=== PATIENT | male | born 1945 | race Caucasian/White ===

== ENCOUNTER 2019-06-15 10:51 | Outpatient (CLI) | payer OTHER, SELFPAY ==
[2019-06-15 11:22] LABS: Basophils Absolute Auto 0.1 K/mm3 (0.0-0.1); Basophils Percent Auto 0.6 % (0.2-1.2); Eosinophils Absolute Auto 0.5 K/mm3 (0-0.3); Eosinophils Percent Auto 4.4 % (0-4.4); Hematocrit 41.8 % (42.0-52.0); Hemoglobin 14.3 g/dL (14.0-18.0); Immature Granulocyte Absolute 0.05 K/mm3 (0.00-0.031); Immature Granulocyte Percent A 0.5 % (0-0.5); Lymphocytes Absolute Auto 2.23 K/mm3 (0.9-3.2); Lymphocytes Percent Auto 20.6 % (18.3-44.2); Mean Corpuscular HGB Conc 34.2 g/dl (32-36); Mean Corpuscular Hemoglobin 31.2 pg (26-34); Mean Corpuscular Volume 91.3 fl (80-100); Monocytes Absolute Auto 0.9 K/mm3 (0.1-0.6); Monocytes Percent Auto 8.3 % (2.6-8.5); Neutrophils Absolute Auto 7.1 K/mm3 (1.3-6.7); Neutrophils Percent Auto 65.6 % (45.5-73.1); Platelet Count Result 161 k/mm3 (150-375); Red Blood Count 4.58 M/mm3 (4.6-6.20); Red Cell Distribution Width 13.4 % (11.5-14.5); White Blood Count 10.8 K/mm3 (4.5-10.0)
[2019-06-15 11:31] LABS: Hemoglobin A1C 5.6 % (<5.7)
[2019-06-15 11:35] LABS: Alanine Aminotransferase 20 U/L (4-50); Albumin Level 4.1 g/dL (3.5-5.1); Alkaline Phosphatase 66 U/L (38-126); Aspartate Amino Transferase 24 U/L (17-59); Bilirubin,Total 0.6 mg/dL (0.2-1.3); Blood Urea Nitrogen 12 mg/dL (9-20); Calcium 8.8 mg/dL (8.4-10.2); Carbon Dioxide 33 mmol/L (22-30); Chloride 92 mmol/L (98-107); Cholesterol 109 mg/dL (0-200); Estimated Glomerular Filt Rate > 60; Glucose 112 mg/dL (75-110); HDL Direct 28 mg/dL; Potassium 3.5 mmol/L (3.4-5.0); Sodium 134 mmol/L (137-145); Triglycerides 101 mg/dL (<150)
[2019-06-15 11:46] LABS: LDL Cholesterol Direct 71 mg/dL
[2019-06-15 12:04] LABS: Thyroid Stimulating Hormone 0.608 uIU/mL (0.465-4.680)
[2019-06-15 12:55] LABS: Creatinine Urine 18.5 mg/dL
[2019-06-15 13:06] LABS: Microalbumin Urine Random < 6.0 mg/L (0-16.7)
== END 2019-06-15 10:52 | disposition home or self-care (01) ==
LOC: ANHLAB 10:52
PROVIDERS: PCP Internal Medicine; Visit Provider Internal Medicine
DX: I10 Essential (primary) hypertension (principal); E11.9 Type 2 diabetes mellitus without complications; E78.5 Hyperlipidemia, unspecified
CPT/HCPCS: 36415; 80053; 80061; 82043; 83036; 84443; 85025

== ENCOUNTER 2019-06-16 13:04 | Outpatient (CLI) | payer OTHER, SELFPAY ==
--- NOTE | 2019-06-16 13:18 | ECHO_ITS ---
Patient Info Name: Partha Robbins Age: 73 years : 1945 Gender: Male Ht: 73 in Wt: 297 lbs BSA: 2.69 m2 HR: 78 bpm BP: 169 / 86 mmHg Heart Rhythm: Sinus Rhythm Technical Quality: Good Exam Date: 06/16/2019 1:24 PM Exam Location: [facility] Patient Status: Outpatient Admit Date: 06/16/2019 Staff Ordering Physician: Ramon Dela Cruz MD Flat Lock Machine Operator: Kp Brito RDCS Attending Provider: Ramon Dela Cruz MD Exam Type: CA echo doppler color flow Study Info Indications R60.9 - Edema, unspecified Complete two-dimensional, color flow and Doppler transthoracic echocardiogram is performed. History/Risk Factors Edema, HTN. Summary 1. Left ventricular chamber dimension is normal. 2. Left ventricular systolic function is normal, estimated at 50-55%. 3. The left ventricular diastolic function is abnormal. 4. E/e' 10 is mildly elevated. 5. Left atrial chamber dimension is moderately enlarged. 6. Right atrial chamber dimension is mildly enlarged. 7. There is mild mitral valve regurgitation. 8. There is trace tricuspid valve regurgitation. 9. No pulmonary hypertension, estimated pulmonary arterial systolic pressure is 35 mmHg. Left Ventricle E/e' 10 is mildly elevated. Left ventricular chamber dimension is normal. Left ventricular systolic function is normal, estimated at 50-55%. The left ventricular diastolic function is abnormal. Right Ventricle Right ventricular chamber dimension is normal. Right ventricular systolic function is normal. Left Atria Left atrial chamber dimension is moderately enlarged. Right Atria Right atrial chamber dimension is mildly enlarged. Aortic Valve The aortic valve is trileaflet. There is no aortic valve stenosis. There is no aortic valve regurgitation. Pulmonic Valve There is no pulmonic regurgitation. Mitral Valve There is no mitral valve stenosis. There is mild mitral valve regurgitation. Tricuspid Valve There is trace tricuspid valve regurgitation. No pulmonary hypertension, estimated pulmonary arterial systolic pressure is 35 mmHg. Pericardium/Pleural There is no pericardial effusion. Inferior Vena Cava Normal inferior vena cava with >50% collapse upon inspiration consistent with normal right atrial pressure, 5 mmHg. Aorta The aortic root size at the sinus of Valsalva is normal. Left Ventricular Outflow Tract Name Value Normal LVOT 2D LVOT Diameter 2.0 cm LVOT Doppler LVOT Peak Gradient 7 mmHg LVOT Mean Gradient 4 mmHg LVOT VTI 27 cm LVOT VTI/AV VTI Ratio 0.8 LVOT Stroke Volume 80 ml LVOT CO 5.6 l/min LVOT CI 2.1 l/min/m2 Mitral Valve Name Value Normal MV Doppler
== END 2019-06-16 13:05 | disposition home or self-care (01) ==
LOC: ANHCARD 13:07
PROVIDERS: PCP Internal Medicine; Visit Provider Internal Medicine
DX: R60.9 Edema, unspecified (principal); I10 Essential (primary) hypertension; R93.1 Abnormal findings on diagnostic imaging of heart and coronary circulation
CPT/HCPCS: 93306

== ENCOUNTER 2019-06-20 13:28 | Outpatient (CLI) | payer OTHER, SELFPAY ==
--- NOTE | ~2019-06-20 | CT_ITS ---
EXAMINATION: CT lung screening EXAM DATE: 06/20/2019 14:07 INDICATION: Personal history of nicotine dependence. TECHNIQUE: Spiral low dose CT of the chest without contrast. Axial, coronal and sagittal images were reviewed. The dose-length product (DLP) for this examination was 346.40 mGy-cm. The exposure was t ailored according to patient size (auto mA exposure control), and iterative reconstruction (ASIR) was used as additional dose reduction technique. There is no prior study for comparison. FINDINGS: There is mild emphysema. Tracheobronchial tree is patent. There is no mediastinal, caprice r or axillary lymphadenopathy. Small There is no pneumothorax. Heart normal in size. There is mild coronary arterial calcification, arterial sclerosis. Upper abdomen is unremarkable. Small bone island within T4. There are old rib fractures. IMPRESSION: Lung-RADS category 1, negative (<1%chance of malignancy); recommend continued LDCT screen ing in 1 year. Reviewed, dictated and finalized at location A. CTOR OF FINANCIAL REPORTING IMPRESSION: Lung-RADS category 1, negative (<1%chance of malignancy); recommend continued LDCT screening in 1 year.
== END 2019-06-20 13:29 | disposition home or self-care (01) ==
LOC: ANHIMG 13:29
PROVIDERS: PCP Internal Medicine; Visit Provider Internal Medicine
DX: Z09 Encounter for follow-up examination after completed treatment for conditions other than malignant neoplasm (principal); Z12.2 Encounter for screening for malignant neoplasm of respiratory organs; Z87.891 Personal history of nicotine dependence
CPT/HCPCS: G0297

== ENCOUNTER 2019-10-11 14:20 | Outpatient (CLI) | payer OTHER, SELFPAY ==
[2019-10-11 14:54] LABS: Add Urine Microscopic? YES; Appearance Urine Clear (Clear); Bacteria Urine Trace /hpf; Bilirubin Urine Negative (Negative); Blood Urine 3+ (Negative); Color Urine Yellow (Yellow); Glucose Urine UA Negative (Negative); Ketones Urine Negative (Negative); Leukocyte Esterase Ur Trace LEU/UL (Negative); Mucus Urine Rare /lpf; Nitrate Urine Negative (Negative); Protein Urine 1+ mg/dL (Negative); RBC Urine >75 /hpf (0-2); Specific Grav Ur 1.016 (1.001-1.035); Squamous Epithelial Cell Urine Rare /hpf (Few)
== END 2019-10-11 14:21 | disposition home or self-care (01) ==
PROVIDERS: PCP Internal Medicine; Visit Provider Internal Medicine
DX: R31.9 Hematuria, unspecified (principal)
CPT/HCPCS: 81001; 87086

== ENCOUNTER 2019-10-12 13:03 | Outpatient (CLI) | payer OTHER, SELFPAY ==
[2019-10-12 13:43] LABS: Alanine Aminotransferase 16 U/L (4-50); Albumin Level 4.1 g/dL (3.5-5.1); Alkaline Phosphatase 71 U/L (38-126); Aspartate Amino Transferase 20 U/L (17-59); Bilirubin,Total 0.5 mg/dL (0.2-1.3); Blood Urea Nitrogen 7 mg/dL (9-20); Carbon Dioxide 34 mmol/L (22-30); Chloride 97 mmol/L (98-107); Estimated Glomerular Filt Rate > 60; Glucose 96 mg/dL (75-110); Potassium 3.4 mmol/L (3.4-5.0); Sodium 135 mmol/L (137-145)
== END 2019-10-12 13:04 | disposition home or self-care (01) ==
LOC: ANHLAB 13:05
PROVIDERS: PCP Internal Medicine; Visit Provider Internal Medicine
DX: I10 Essential (primary) hypertension (principal); R82.2 Biliuria
CPT/HCPCS: 36415; 80053

== ENCOUNTER 2019-10-21 12:27 | Outpatient (CLI) | payer OTHER, SELFPAY ==
--- NOTE | ~2019-10-21 | CT_ITS ---
EXAMINATION: CT abdomen pelvis wo con EXAM DATE: 10/21/2019 13:07 INDICATION: Hematuria. TECHNIQUE: Spiral CT of the abdomen and pelvis was performed without contrast. Axial, coronal and sag ittal images were reviewed. The dose-length product (DLP) for this examination was 1432.45 mGy-cm. The exposure was tailored according to patient size (auto mA exposure control), and iterative reconst ruction (ASIR) was used as additional dose reduction technique. Comparison is made to prior examinati on from 07/02/2012. FINDINGS: There is an exophytic left renal cyst measuring 7.3 cm. Mild nonspecific bilateral perineph edgar fat stranding. There is no nephrolithiasis or hydronephrosis. The prostate is unremarkable. Th e bladder is unremarkable. The liver, spleen, adrenal glands and pancreas are unremarkable. Gallbla dder is unremarkable. No biliary obstruction. There is no retroperitoneal or pelvic lymphadenopathy . There is moderate scattered arteriosclerotic disease. The appendix is normal. The stomach and small bowel are unremarkable. There is expected amount of c olonic stool. There is mild scattered colonic diverticulosis. There is no adjacent inflammatory orlando ge to suggest diverticulitis. No free intraperitoneal gas. The heart is normal in size. There are no pericardial or pleural effusions. The lung bases are unremarkable. Moderate to severe lumbar di sc disease. There are no osteoblastic or osteolytic lesions identified. There are old left rib fractu res. Small umbilical fat-containing hernia. IMPRESSION: 1. No nephrolithiasis, hydronephrosis or acute intra-abdominal findings. 2. Mild colonic diverticulosis. Reviewed, dictated and finalized at location A.
== END 2019-10-21 12:28 | disposition home or self-care (01) ==
PROVIDERS: PCP Internal Medicine; Visit Provider Internal Medicine
DX: R31.9 Hematuria, unspecified (principal); K57.90 Diverticulosis of intestine, part unspecified, without perforation or abscess without bleeding
CPT/HCPCS: 74176

== ENCOUNTER 2019-12-14 11:53 | Outpatient (CLI) | payer OTHER, SELFPAY ==
[2019-12-14 12:22] LABS: Hemoglobin A1C 5.3 % (<5.7)
[2019-12-14 12:34] LABS: Alanine Aminotransferase 19 U/L (4-50); Alkaline Phosphatase 58 U/L (38-126); Anion Gap 10.5 mmol/L (7-16); Aspartate Amino Transferase 26 U/L (17-59); Bilirubin,Total 0.4 mg/dL (0.2-1.3); Blood Urea Nitrogen 12 mg/dL (9-20); Carbon Dioxide 32 mmol/L (22-30); Chloride 95 mmol/L (98-107); Estimated Glomerular Filt Rate > 60; Glucose 68 mg/dL (75-110); Potassium 3.5 mmol/L (3.4-5.0); Sodium 134 mmol/L (137-145)
[2019-12-14 13:30] LABS: Creatinine Urine 98.5 mg/dL
[2019-12-14 13:34] LABS: MALB Creatinine Ratio 6.7 mg/g (0-30); Microalbumin Urine Random 6.6 mg/L (0-16.7)
== END 2019-12-14 11:54 | disposition home or self-care (01) ==
PROVIDERS: PCP Internal Medicine; Visit Provider Internal Medicine
DX: E11.9 Type 2 diabetes mellitus without complications (principal); E78.5 Hyperlipidemia, unspecified
CPT/HCPCS: 36415; 80053; 82043; 83036

== ENCOUNTER 2020-01-31 16:49 | Outpatient (CLI) | payer OTHER, SELFPAY ==
--- NOTE | ~2020-01-31 | MR_ITS ---
EXAMINATION: MR lumbar spine wo con DATE: 01/31/2020 17:49 INDICATION: Low back pain. TECHNIQUE: Magnetic resonance imaging (MRI) of the lumbar spine was performed without intravenous con trast. Sequences included sagittal T2-weighted FSE, sagittal STIR FSE, sagittal T1-weighted FSE, and axial T2-weighted FSE. COMPARISON: None FINDINGS: There is 7 degrees dextrocurvature of thoracolumbar spine. There is 3 mm anterolisthesis of L3 on L4. There are Schmorl's nodes at most levels. There is mildly decreased disc height at L1-L2, moderately decreased disc height at L2-L3 at L3-L4, and severely decreased disc height at L4-L5 and L 5-S1. The distal spinal cord signal intensity is normal. The conus medullaris is at T12-L1. The follo wing disc levels are specifically discussed: L1-L2: The disc is bulging. There is mild bilateral facet joint osteoarthritis. There is mild bilater al neural foraminal stenosis. There is mild central canal stenosis. L2-L3: The disc is bulging and has an annular fissure. There is severe right and moderate left facet joint osteoarthritis. There is hypertrophy of the ligamentum flavum. There is moderate bilateral neur al foraminal stenosis. There is mild central canal stenosis. L3-L4: The disc is bulging and has an annular fissure. There is severe bilateral facet joint osteoart hritis. There is hypertrophy of the ligamentum flavum. There is moderate bilateral neural foraminal s tenosis. There is severe central canal stenosis. L4-L5: The disc is bulging and has an annular fissure. There is severe bilateral facet joint osteoart hritis. There is moderate bilateral neural foraminal stenosis. There is mild central canal stenosis. L5-S1: The disc is bulging and has an annular fissure. There is moderate right and severe left facet joint osteoarthritis. There is mild bilateral neural foraminal stenosis. There is mild central canal stenosis. IMPRESSION: 1. Severe lumbar spondylosis. Reviewed, dictated and finalized at location A.
== END 2020-01-31 16:50 | disposition home or self-care (01) ==
PROVIDERS: Visit Provider Orthopaedic Surgery
DX: M54.5 Low back pain (principal); M47.816 Spondylosis without myelopathy or radiculopathy, lumbar region
CPT/HCPCS: 72148

== ENCOUNTER 2020-02-15 13:59 | Outpatient (CLI) | payer OTHER, SELFPAY ==
[2020-02-15 14:51] LABS: Add Urine Microscopic? YES; Appearance Urine Clear (Clear); Bilirubin Urine Negative (Negative); Color Urine Yellow (Yellow); Glucose Urine UA Negative (Negative); Ketones Urine Negative (Negative); Leukocyte Esterase Ur 3+ LEU/UL (Negative); Mucus Urine Rare /lpf; Nitrate Urine Negative (Negative); Protein Urine Negative (Negative); Specific Grav Ur 1.009 (1.001-1.035); Urobilinogen Urine Negative mg/dL (<2.0); WBC Urine >75 /hpf
[2020-02-15 14:54] LABS: Blood Urine Negative (Negative)
== END 2020-02-15 14:00 | disposition home or self-care (01) ==
PROVIDERS: PCP Internal Medicine; Visit Provider Internal Medicine
DX: R30.0 Dysuria (principal)
CPT/HCPCS: 81001; 87086; 87088

== ENCOUNTER 2020-02-22 14:08 | Outpatient (CLI) | payer OTHER, SELFPAY ==
[2020-02-22 14:37] LABS: Add Urine Microscopic? YES; Appearance Urine Clear (Clear); Bilirubin Urine Negative (Negative); Color Urine Straw (Yellow); Glucose Urine UA Negative (Negative); Ketones Urine Negative (Negative); Leukocyte Esterase Ur 2+ LEU/UL (Negative); Mucus Urine Rare /lpf; Nitrate Urine Negative (Negative); Protein Urine Negative (Negative); Specific Grav Ur 1.011 (1.001-1.035); Squamous Epithelial Cell Urine Rare /hpf (Few); Urobilinogen Urine Negative mg/dL (<2.0); WBC Urine 51-75 /hpf
[2020-02-22 15:26] LABS: Blood Urine Negative (Negative)
== END 2020-02-22 14:09 | disposition home or self-care (01) ==
LOC: ANHLAB 14:09
PROVIDERS: PCP Internal Medicine; Visit Provider Internal Medicine
DX: R39.9 Unspecified symptoms and signs involving the genitourinary system (principal)
CPT/HCPCS: 81001; 87086

== ENCOUNTER 2020-03-13 14:03 | Outpatient (CLI) | payer OTHER, SELFPAY ==
--- NOTE | 2020-03-13 14:04 | ECG_ITS ---
Measurements Intervals Bay Rate: 80 P: 48 WV: 170 QRS: -7 QRSD: 92 T: 40 QT: 388 QTc: 450 Interpretive Statements SINUS RHYTHM DELAYED PRECORDIAL R/S TRANSITION BASELINE ARTIFACT- I, II, III, AVR, AVL, AVF, V1-V2, V6 BORDERLINE ECG Electronically Signed On 03-13-2020 14:22:09 CDT by Herb John D.O.
[2020-03-13 14:26] LABS: Hematocrit 40.5 % (42.0-52.0); Hemoglobin 13.8 g/dL (14.0-18.0)
[2020-03-13 14:39] LABS: Anion Gap 7 mmol/L (8-16); Blood Urea Nitrogen 9 mg/dL (9-20); Calcium 9.1 mg/dL (8.4-10.2); Carbon Dioxide 33 mmol/L (22-30); Chloride 93 mmol/L (98-107); Estimated Glomerular Filt Rate > 60; Glucose 121 mg/dL (75-110); Potassium 4.4 mmol/L (3.4-5.0); Sodium 133 mmol/L (137-145)
== END 2020-03-13 14:04 | disposition home or self-care (01) ==
PROVIDERS: Anesthesiology; PCP Internal Medicine; Visit Provider Urology
DX: Z01.818 Encounter for other preprocedural examination (principal); D64.9 Anemia, unspecified; E11.9 Type 2 diabetes mellitus without complications
CPT/HCPCS: 36415; 80048; 85014; 85018; 93005

== ENCOUNTER 2020-03-16 01:45 | Outpatient (CLI) | payer OTHER, SELFPAY ==
[2020-03-16 22:13] LABS: SARS-CoV-2 RNA PCR Negative
== END 2020-03-16 01:46 | disposition home or self-care (01) ==
LOC: ANHCOVIDDT 01:45
PROVIDERS: PCP Internal Medicine; Visit Provider Urology
DX: Z01.812 Encounter for preprocedural laboratory examination (principal); Z20.828 Contact with and (suspected) exposure to other viral communicable diseases
CPT/HCPCS: 87635; C9803; U0003

== ENCOUNTER 2020-03-19 00:43 | Day surgery (SDC) | payer OTHER, SELFPAY ==
[2020-03-12 12:58] VITALS: BMI 39.6
--- NOTE | 2020-03-18 14:25 | WPDANESEPPF ---
Anes - Initial Pre Proc Eval Procedure: Operation Date: 03/19/20 13:00 Proposed Procedures p Excision Of Urethral Condyloma - Arian Marin MD Date/Time: 03/18/20 14:25 Surgeon: Arian Marin MD Pre Op Diagnosis: Urethral Condyloma Patient Data Age: 74 Gender: M Height: 1.85 m Weight: 136.3 kg Allergies Allergy/AdvReac Type Severity Reaction Status Date / Time quinapril Allergy Intermediate Hives Verified 03/12/20 12:43 bupropion Allergy Mild Hives/Red Verified 03/12/20 12:43 face latex Allergy Mild Blister Verified 03/12/20 12:43 Home Medications Medication Instructions Recorded Confirmed Type ascorbic acid (vitamin C) [Vitamin 1 g PO DAILY 03/10/19 03/12/20 History C] multivitamin with minerals 1 tablet PO DAILY 03/10/19 03/12/20 History [Hair,Skin and Nails] multivitamin,ob-aris-fswlrbmm 1 tablet PO DAILY 03/10/19 03/12/20 History [Complete Multivitamin] psyllium husk [Metamucil] 4 g PO BID 03/10/19 03/12/20 History vitamin E 1,000 unit PO DAILY 03/10/19 03/12/20 History sildenafil 100 mg tablet 100 mg PO DAILY PRN #4 tablet 05/04/19 03/12/20 Rx semaglutide 1 mg/dose (2 mg/1.5 1 mg SUBCUT WEEKLY #3 ml 06/12/19 03/12/20 Rx mL) subcutaneous pen injector pen needle, diabetic 32 gauge x #100 each 11/10/19 Rx hydralazine 10 mg tablet 10 mg PO TID #270 tablet 11/20/19 03/12/20 Rx doxazosin 8 mg tablet 8 mg PO DAILY #90 tablet 12/14/19 03/12/20 Rx fluticasone fur. 100 mcg-umeclid 1 inhalation INHALATION DAILY #60 12/14/19 03/12/20 Rx 62.5 mcg-vilant 25 mcg each inhalat.powder diltiazem HCl 360 mg capsule,24 360 mg PO DAILY #90 cap 01/09/20 03/12/20 Rx hr,extended release metoprolol succinate 100 mg 150 mg PO DAILY #135 tablet 01/15/20 03/12/20 Rx tablet,extended release 24 hr potassium chloride 20 mEq See Rx Instructions .ROUTE BID 02/02/20 03/12/20 Rx tablet,extended release(part/cryst) #180 tablet aspirin [Aspirin Low Dose] 81 mg PO DAILY 03/12/20 03/12/20 History ferrous sulfate 325 mg DAILY 03/12/20 03/12/20 History metformin 1,000 mg BID 03/12/20 03/12/20 History rosuvastatin 20 mg DAILY 03/12/20 03/12/20 History bumetanide 0.5 mg tablet 0.5 mg PO DAILY #90 tablet 03/15/20 Rx Patient hx anesthesia problems: none Family hx anesthesia problems: none PMFSH Past Medical History Medical History Arthritis COPD (chronic obstructive pulmonary disease) CVA (cerebral vascular accident) Diabetes Hyperlipidemia Hypertension Morbid obesity SUHA (obstructive sleep apnea) Peripheral neuropathy Tobacco use Family History Family History (System 06/07/19 @ 09:28 by Nery Marroquin) Father Hypertension Cerebrovascular accident Grandparent Family history of malignant neoplasm Family history of congestive heart failure Mother Family history of malignant neoplasm of breast in first degree relative Social History Social History (System 06/07/19 @ 09:28 by Nery Marroquin) Smoking status: Current every day smoker Tobacco type: cigarettes Additional smoking assessment comments: STATES 2PK/DAY/50+YRS Alcohol intake: current Drinks per week: 2 Substance use: former Other substance usage details: STATES CBD OIL IN THE PAST Living arrangements: alone Spiritual care concerns: No Anes - Eval Final PreProcedure Day of Procedure 03/18/20 14:25 Patient weight: obese Heart: regular rate and rhythm Lungs: clear to auscultation and normal air movement Airway: Mallampati scale class II Neurological: alert and oriented Last oral intake: >/= 8 hours ASA classification: III Emergent: no Anesthetic plan: proceed Anesthesia type and monitoring: general LMA Informed Consent: The patient's anesthetic plan and its attendant risks and benefits were discussed with the patient/family/POA. Questions were solicited and answers provided to the satisfaction of the patient/family/POA.
[2020-03-19] MEDS: LACTATED RINGERS 1,000 ML 30 ML IV CONT (12:00)
--- NOTE | 2020-03-19 12:04 | WPDHPUPDATE1 ---
History and Physical Update Update Date/Time: 03/19/20 12:04 History and Physical has been reviewed, including an updated exam of the patient. There are NO changes in the patient's condition. Risks, benefits, and alternatives have been discussed and questions answered. Patient agrees to proceed with procedure. Proceed with excision of urethral condyloma
[2020-03-19 12:06] LABS: Glucose Point of Care 116 (65-105)
[2020-03-19 12:10] VITALS: BP 154/73; PULSE 79; RESP 18; TEMP 36.7; O2SAT 95
[2020-03-19] MEDS: ceFAZolin 2 GM/D5W 50 ML 2 GM/50 ML BAG IVPB (13:37)
[2020-03-19] MEDS: LIDOCAINE HCL 2% GEL UROJET 10 ML PKG MUCOUS MEM (14:05)
[2020-03-19 14:14] VITALS: BP 101/58; PULSE 60; RESP 10; TEMP 37.1; O2SAT 98
--- NOTE | 2020-03-19 14:14 | PM.PROC ---
Procedure Note - Detailed Date of procedure: 03/19/20 Pre-op diagnosis: Urethral Condyloma Post-op diagnosis: same Procedure performed: Excision of urethral condyloma approximately 3 mm proximally 5 mm into urethra on ventral aspect Description of procedure: patient is taken the operative suite correctly identified. Once anesthesia was obtained was prepped and draped usual sterile fashion. He has not lesion approximately 3 mm which is on a stalk at the dorsal aspect of the urethra approximately 4 mm in. We went ahead and excise this and then placed a 4 0 chromic suture to reapproximate the mucosa. 2% viscous lidocaine was inserted in urethra at this time. He is taken recovery room stable condition. Anesthesia: GLMA Surgeon: Arian Marin MD Drains: No Packing: No Pathology: yes Complications: No immediate complications Condition: stable Disposition: PACU
[2020-03-19 14:24] LABS: Glucose Point of Care 126 (65-105)
[2020-03-19 14:31] VITALS: BP 109/64; PULSE 75; RESP 18; O2SAT 95
[2020-03-19 14:45] VITALS: BP 98/54; PULSE 71; RESP 14; O2SAT 94
[2020-03-19 14:51] VITALS: BP 118/63; PULSE 74; RESP 18
--- NOTE | 2020-03-19 15:07 | SUR.PHASEII ---
1500; PT AWAKE AND ALERT. DENIES PAIN OR NAUSEA. DRINKING COFFEE AND EATING CRACKERS. ASKING TO GO HOME.
[2020-03-19 15:21] VITALS: BP 119/66; PULSE 68; RESP 18
== END 2020-03-19 15:35 | disposition home or self-care (01) ==
PROVIDERS: PCP Internal Medicine; Visit Provider Urology
PROC: (CPT 54060; principal; 2020-03-19 13:00)
DX: A63.0 Anogenital (venereal) warts (principal); I10 Essential (primary) hypertension; E11.42 Type 2 diabetes mellitus with diabetic polyneuropathy; E78.5 Hyperlipidemia, unspecified; G47.33 Obstructive sleep apnea (adult) (pediatric); J44.9 Chronic obstructive pulmonary disease, unspecified; Z86.73 Personal history of transient ischemic attack (TIA), and cerebral infarction without residual deficits; E66.01 Morbid (severe) obesity due to excess calories; Z68.39 Body mass index [BMI] 39.0-39.9, adult; Z79.84 Long term (current) use of oral hypoglycemic drugs; Z79.82 Long term (current) use of aspirin; F17.210 Nicotine dependence, cigarettes, uncomplicated
CPT/HCPCS: 11420; 88305; A9270; J0690; J1100; J2250; J2405; J2704; J3010; J7120

== ENCOUNTER 2020-03-21 10:43 | Outpatient (CLI) | payer OTHER, SELFPAY ==
[2020-03-21 11:31] LABS: Anion Gap 7 mmol/L (8-16); Blood Urea Nitrogen 14 mg/dL (9-20); Calcium 8.6 mg/dL (8.4-10.2); Carbon Dioxide 34 mmol/L (22-30); Chloride 95 mmol/L (98-107); Estimated Glomerular Filt Rate > 60; Glucose 113 mg/dL (75-110); Sodium 136 mmol/L (137-145)
== END 2020-03-21 10:44 | disposition home or self-care (01) ==
PROVIDERS: PCP Internal Medicine; Visit Provider Internal Medicine
DX: I10 Essential (primary) hypertension (principal)
CPT/HCPCS: 36415; 80048

== ENCOUNTER 2020-06-20 12:35 | Outpatient (CLI) | payer OTHER, SELFPAY ==
[2020-06-20 13:12] LABS: Basophils Absolute Auto 0.1 K/mm3 (0.0-0.1); Basophils Percent Auto 0.7 % (0.2-1.2); Eosinophils Absolute Auto 0.5 K/mm3 (0-0.3); Eosinophils Percent Auto 4.2 % (0-4.4); Hematocrit 39.2 % (42.0-52.0); Hemoglobin 13.3 g/dL (14.0-18.0); Immature Granulocyte Absolute 0.04 K/mm3 (0.00-0.031); Immature Granulocyte Percent A 0.4 % (0-0.5); Lymphocytes Absolute Auto 2.28 K/mm3 (0.9-3.2); Lymphocytes Percent Auto 20.1 % (18.3-44.2); Mean Corpuscular HGB Conc 33.9 g/dl (32-36); Mean Corpuscular Hemoglobin 31.6 pg (26-34); Mean Corpuscular Volume 93.1 fl (80-100); Monocytes Absolute Auto 0.8 K/mm3 (0.1-0.6); Monocytes Percent Auto 7.3 % (2.6-8.5); Neutrophils Absolute Auto 7.6 K/mm3 (1.3-6.7); Neutrophils Percent Auto 67.3 % (45.5-73.1); Platelet Count Result 168 k/mm3 (150-375); Red Blood Count 4.21 M/mm3 (4.6-6.20); Red Cell Distribution Width 14.2 % (11.5-14.5); White Blood Count 11.3 K/mm3 (4.5-10.0)
[2020-06-20 13:20] LABS: Hemoglobin A1C 5.6 % (<5.7)
[2020-06-20 13:25] LABS: Alanine Aminotransferase 19 U/L (4-50); Albumin Level 3.9 g/dL (3.5-5.1); Alkaline Phosphatase 63 U/L (38-126); Anion Gap 6 mmol/L (8-16); Aspartate Amino Transferase 21 U/L (17-59); Bilirubin,Total 0.5 mg/dL (0.2-1.3); Blood Urea Nitrogen 13 mg/dL (9-20); Calcium 8.6 mg/dL (8.4-10.2); Carbon Dioxide 32 mmol/L (22-30); Chloride 99 mmol/L (98-107); Cholesterol 105 mg/dL (0-200); Estimated Glomerular Filt Rate > 60; Glucose 114 mg/dL (75-110); HDL Direct 31 mg/dL; Potassium 3.7 mmol/L (3.4-5.0); Sodium 137 mmol/L (137-145); Triglycerides 111 mg/dL (<150)
[2020-06-20 13:37] LABS: LDL Cholesterol Direct 56 mg/dL
[2020-06-20 13:52] LABS: Iron 64 ug/dL (49-181)
[2020-06-20 13:57] LABS: Prostate Specific Antigen 1.3 ng/mL (< OR = 4.0)
[2020-06-20 14:02] LABS: Percent Iron Saturation 19 % (20-50)
[2020-06-20 14:28] LABS: Add Urine Microscopic? YES; Appearance Urine Clear (Clear); Bilirubin Urine Negative (Negative); Blood Urine Negative (Negative); Color Urine Yellow (Yellow); Glucose Urine UA Negative (Negative); Ketones Urine Negative (Negative); Leukocyte Esterase Ur Negative LEU/UL (NEGATIVE); Mucus Urine Rare /lpf; Nitrate Urine Negative (Negative); Protein Urine Negative (Negative); Specific Grav Ur 1.016 (1.001-1.035); Urobilinogen Urine Negative mg/dL (<2.0); WBC Urine 0-3 /hpf (0-3)
[2020-06-20 14:36] LABS: Folic Acid > 20.0 ng/mL (2.76->20)
[2020-06-20 15:32] LABS: Vitamin D 25 Hydroxy 40.8 ng/mL
== END 2020-06-20 12:36 | disposition home or self-care (01) ==
LOC: ANHLAB 12:42
PROVIDERS: PCP Internal Medicine; Visit Provider Internal Medicine
DX: D64.9 Anemia, unspecified (principal); G62.9 Polyneuropathy, unspecified; I10 Essential (primary) hypertension; E78.2 Mixed hyperlipidemia; E11.65 Type 2 diabetes mellitus with hyperglycemia; Z79.4 Long term (current) use of insulin; E55.9 Vitamin D deficiency, unspecified; Z79.899 Other long term (current) drug therapy
CPT/HCPCS: 36415; 80053; 80061; 81001; 82306; 82607; 82728; 82746; 83036; 83540; 83550; 84153; 84443; 85025; G0103

== ENCOUNTER 2020-12-24 11:54 | Outpatient (CLI) | payer OTHER, SELFPAY ==
[2020-12-24 12:29] LABS: Hematocrit 40.5 % (42.0-52.0); Hemoglobin 13.1 g/dL (14.0-18.0); Mean Corpuscular HGB Conc 32.3 g/dl (32-36); Mean Corpuscular Hemoglobin 30.4 pg (26-34); Mean Platelet Volume 11.1 fl (7.4-10.4); Platelet Count Result 160 k/mm3 (150-375); Red Blood Count 4.31 M/mm3 (4.6-6.20); Red Cell Distribution Width 13.8 % (11.5-14.5); White Blood Count 10.9 K/mm3 (4.5-10.0)
[2020-12-24 12:58] LABS: Alanine Aminotransferase 17 U/L (4-50); Albumin Level 4.1 g/dL (3.5-5.1); Alkaline Phosphatase 73 U/L (38-126); Anion Gap 4 mmol/L (8-16); Aspartate Amino Transferase 22 U/L (17-59); Bilirubin,Total 0.5 mg/dL (0.2-1.3); Blood Urea Nitrogen 14 mg/dL (9-20); Calcium 9.1 mg/dL (8.4-10.2); Carbon Dioxide 30 mmol/L (22-30); Chloride 99 mmol/L (98-107); Estimated Glomerular Filt Rate > 60; Glucose 112 mg/dL (65-110); Potassium 3.7 mmol/L (3.4-5.0); Sodium 133 mmol/L (137-145)
[2020-12-24 13:31] LABS: Creatinine Urine 42.4 mg/dL
[2020-12-24 13:48] LABS: Folic Acid > 20.0 ng/mL (2.76->20)
[2020-12-24 13:49] LABS: MALB Creatinine Ratio 14.2 mg/g (0-30); Microalbumin Urine Random < 6.0 mg/L (0-16.7)
== END 2020-12-24 11:55 | disposition home or self-care (01) ==
PROVIDERS: PCP Internal Medicine; Visit Provider Internal Medicine
DX: D64.9 Anemia, unspecified (principal); E11.65 Type 2 diabetes mellitus with hyperglycemia; E53.8 Deficiency of other specified B group vitamins; E78.2 Mixed hyperlipidemia; I10 Essential (primary) hypertension; Z79.4 Long term (current) use of insulin
CPT/HCPCS: 36415; 80053; 82043; 82607; 82746; 83036; 85027

== ENCOUNTER 2021-01-13 11:08 | Outpatient (CLI) | payer OTHER, SELFPAY ==
--- NOTE | ~2021-01-13 | CT_ITS ---
EXAMINATION: CT lung screening DATE: 01/13/2021 11:38 INDICATION: Personal history of tobacco dependence, current smoker with 100 pack year history TECHNIQUE: Computed tomography (CT) of the chest was performed without intravenous contrast. The dose -length product (DLP) was 385.48 mGy-cm. Automated exposure control and iterative reconstruction tech Primeloop were employed. COMPARISON: 06/20/2019 FINDINGS: There are multiple new nodules in the upper lobes which measure up to 5 mm and may be infec tious or inflammatory. The lungs are free of focal airspace opacities. There is no pleural effusion o r pneumothorax. There is a trace pericardial effusion. Calcified coronary artery atherosclerosis is n oted. The heart size is normal. There is mild thoracic spondylosis. IMPRESSION: 1. Lung-RADS category 3: Probably benign. Followup with noncontrast low-dose chest CT in 6 months is recommended. Reviewed, dictated and finalized at location A. IMPRESSION: 1. Lung-RADS category 3: Probably benign. Followup with noncontrast low-dose ch est CT in 6 months is recommended.
== END 2021-01-13 11:09 | disposition home or self-care (01) ==
LOC: ANHIMG 11:12
PROVIDERS: PCP Internal Medicine; Visit Provider Internal Medicine
DX: Z12.2 Encounter for screening for malignant neoplasm of respiratory organs (principal); Z87.891 Personal history of nicotine dependence
CPT/HCPCS: 71271

== ENCOUNTER 2021-08-22 13:35 | Outpatient (CLI) | payer OTHER, SELFPAY ==
--- NOTE | ~2021-08-22 | CT_ITS ---
EXAMINATION: CT diagnostic chest wo con DATE: 08/22/2021 14:01 INDICATION: Multiple lung nodules. Smoker for 40+ years. TECHNIQUE: Computed tomography (CT) of the chest was performed without intravenous contrast. Automate d exposure control and iterative reconstruction technique were employed. Exam dose: 382.78 mGy-cm to marilia exam DLP. COMPARISON: None FINDINGS: Multiple bilateral upper lobe up to 5 mm nodules reported on 01/13/2021 and largely resolved . There is a small focal probable scarring in the anterior lingular area, stable since 01/13/2021. There is a new pleural-based posterolateral right lower lobe 8 mm pulmonary nodule, was slight hazine ss around the margins. This may be inflammatory, considering the patient has rounded margins and brittani larity to prior subcentimeter pulmonary nodules which have resolved since 01/13/2021. 3-[address] tho rax follow-up is recommended. There is thoracic aortic, great vessel and coronary artery calcification. Small pericardial effusion. Normal heart size. Normal morphology of the adrenal glands. Diffuse idiopathic skeletal hyperostosis of the thoracic spine. IMPRESSION: Resolution of multiple 5 mm smaller upper lobe nodules since 01/13/2021 New pleural-based right lower lobe 8 mm pulmonary nodule since 01/13/2021, with slight haziness around the margins. This may be infectious. Consider 3-[address] follow-up examination Reviewed, dictated and finalized at Location A. Reviewed, dictated and finalized at location A. IMPRESSION: Resolution of multiple 5 mm smaller upper lobe nodules since 2020 New pleural-based right lower lobe 8 mm pulmonary nodule since 01/13/2021, with slight haziness around the margins. This may be infectious. Consider 3-[address] follow-up examination
== END 2021-08-22 13:36 | disposition home or self-care (01) ==
PROVIDERS: PCP Internal Medicine; Visit Provider Internal Medicine
DX: R91.8 Other nonspecific abnormal finding of lung field (principal); I25.10 Atherosclerotic heart disease of native coronary artery without angina pectoris; I70.0 Atherosclerosis of aorta; I31.3 Pericardial effusion (noninflammatory); M48.14 Ankylosing hyperostosis [Forestier], thoracic region
CPT/HCPCS: 71250

== ENCOUNTER 2021-08-30 12:12 | Outpatient (CLI) | payer OTHER, SELFPAY ==
[2021-08-30 12:29] LABS: Basophils Absolute Auto 0.1 K/mm3 (0.0-0.1); Basophils Percent Auto 0.7 % (0.2-1.2); Eosinophils Absolute Auto 0.4 K/mm3 (0-0.3); Eosinophils Percent Auto 3.5 % (0-4.4); Hematocrit 40.3 % (42.0-52.0); Hemoglobin 13.8 g/dL (14.0-18.0); Immature Granulocyte Absolute 0.03 K/mm3 (0.00-0.031); Immature Granulocyte Percent A 0.3 % (0-0.5); Lymphocytes Absolute Auto 2.07 K/mm3 (0.9-3.2); Lymphocytes Percent Auto 20.3 % (18.3-44.2); Mean Corpuscular HGB Conc 34.2 g/dl (32-36); Mean Corpuscular Hemoglobin 31.6 pg (26-34); Mean Corpuscular Volume 92.2 fl (80-100); Mean Platelet Volume 10.8 fl (7.4-10.4); Monocytes Absolute Auto 0.7 K/mm3 (0.1-0.6); Monocytes Percent Auto 6.5 % (2.6-8.5); Neutrophils Percent Auto 68.7 % (45.5-73.1); Platelet Count Result 165 k/mm3 (150-375); Red Blood Count 4.37 M/mm3 (4.6-6.20); Red Cell Distribution Width 14.4 % (11.5-14.5); White Blood Count 10.2 K/mm3 (4.5-10.0)
[2021-08-30 12:39] LABS: Alanine Aminotransferase 14 U/L (4-50); Albumin Level 4.4 g/dL (3.5-5.1); Alkaline Phosphatase 71 U/L (38-126); Anion Gap 4 mmol/L (8-16); Aspartate Amino Transferase 22 U/L (17-59); Bilirubin,Total 0.6 mg/dL (0.2-1.3); Blood Urea Nitrogen 12 mg/dL (9-20); Calcium 8.7 mg/dL (8.4-10.2); Carbon Dioxide 31 mmol/L (22-30); Chloride 97 mmol/L (98-107); Cholesterol 115 mg/dL (0-200); Estimated Glomerular Filt Rate > 60; Glucose 124 mg/dL (65-110); HDL Direct 29 mg/dL; Potassium 3.9 mmol/L (3.4-5.0); Sodium 132 mmol/L (137-145); Triglycerides 165 mg/dL (<150)
[2021-08-30 12:50] LABS: LDL Cholesterol Direct 57 mg/dL
[2021-08-30 13:05] LABS: MALB Creatinine Ratio 26.2 mg/g (0-30); Microalbumin Urine Random 13.9 mg/L (0-16.7)
[2021-08-30 13:09] LABS: Prostate Specific Antigen 1.4 ng/mL (< OR = 4.0)
[2021-08-30 13:15] LABS: Vitamin D 25 Hydroxy 53.6 ng/mL
[2021-08-30 13:47] LABS: Hemoglobin A1C 5.4 % (<5.7)
== END 2021-08-30 12:13 | disposition home or self-care (01) ==
LOC: ANHLAB 12:14
PROVIDERS: PCP Internal Medicine; Visit Provider Internal Medicine
DX: Z12.5 Encounter for screening for malignant neoplasm of prostate (principal); I10 Essential (primary) hypertension; E11.65 Type 2 diabetes mellitus with hyperglycemia; Z51.81 Encounter for therapeutic drug level monitoring; Z79.4 Long term (current) use of insulin; E78.2 Mixed hyperlipidemia; E55.9 Vitamin D deficiency, unspecified; E11.42 Type 2 diabetes mellitus with diabetic polyneuropathy
CPT/HCPCS: 36415; 80053; 80061; 82043; 82306; 83036; 84153; 84443; 85025; G0103

== ENCOUNTER 2021-11-27 13:50 | Outpatient (CLI) | payer OTHER, SELFPAY ==
--- NOTE | ~2021-11-27 | CT_ITS ---
EXAMINATION:CT diagnostic chest wo con DATE: 11/27/2021 14:16 INDICATION: Solitary pulmonary nodule. TECHNIQUE: Computed tomography (CT) of the chest was performed without intravenous contrast. Automate d exposure control and iterative reconstruction technique were employed. The dose-length product (DLP ) was 528.06 mGy-cm. COMPARISON: Chest CT 08/22/2021, 01/13/2021 FINDINGS: There is mild emphysema. There is mild atelectasis bilaterally. There is a 7 mm part solid nodule in left upper lobe, stable from 01/13/21, likely benign. The right lower lobe nodule seen on 08/22/2021 has resolved. No pleural effusion. The heart size is normal. There are coronary artery calcifi cations. There are calcifications of aortic valve. There is a small pericardial effusion. There is a 7.8 cm cyst in left kidney. There are old healed left rib fractures. There is mild thoracic spondylos is. There is a benign bone island in T4 vertebral body. IMPRESSION: 1. Lung-RADS category 2: Benign appearance or behavior. Continue annual screening with noncontrast lo w-dose chest CT in 12 months. Reviewed, dictated and finalized at location A. IMPRESSION: 1. Lung-RADS category 2: Benign appearance or behavior. Continue annual screeni ng with noncontrast low-dose chest CT in 12 months.
== END 2021-11-27 13:51 | disposition home or self-care (01) ==
PROVIDERS: PCP Internal Medicine; Visit Provider Internal Medicine
DX: R91.1 Solitary pulmonary nodule (principal)
CPT/HCPCS: 71250

== ENCOUNTER 2022-03-09 17:02 | Outpatient (CLI) | payer OTHER, SELFPAY ==
[2022-03-09 17:28] LABS: Basophils Absolute Auto 0.1 K/mm3 (0.0-0.1); Basophils Percent Auto 0.6 % (0.2-1.2); Eosinophils Absolute Auto 0.4 K/mm3 (0-0.3); Hematocrit 40.8 % (42.0-52.0); Hemoglobin 13.6 g/dL (14.0-18.0); Immature Granulocyte Absolute 0.05 K/mm3 (0.00-0.031); Immature Granulocyte Percent A 0.5 % (0-0.5); Lymphocytes Absolute Auto 2.13 K/mm3 (0.9-3.2); Lymphocytes Percent Auto 20.7 % (18.3-44.2); Mean Corpuscular HGB Conc 33.3 g/dl (32-36); Mean Corpuscular Hemoglobin 31.3 pg (26-34); Mean Corpuscular Volume 93.8 fl (80-100); Mean Platelet Volume 10.9 fl (7.4-10.4); Monocytes Absolute Auto 0.8 K/mm3 (0.1-0.6); Monocytes Percent Auto 7.3 % (2.6-8.5); Neutrophils Absolute Auto 6.9 K/mm3 (1.3-6.7); Neutrophils Percent Auto 66.9 % (45.5-73.1); Platelet Count Result 163 k/mm3 (150-375); Red Blood Count 4.35 M/mm3 (4.6-6.20); White Blood Count 10.3 K/mm3 (4.5-10.0)
[2022-03-09 17:51] LABS: Alanine Aminotransferase 20 U/L (6-50); Albumin Level 4.3 g/dL (3.5-5.1); Alkaline Phosphatase 78 U/L (38-126); Anion Gap 11 mmol/L (8-16); Aspartate Amino Transferase 20 U/L (17-59); Bilirubin,Total 0.4 mg/dL (0.2-1.3); Blood Urea Nitrogen 11 mg/dL (9-20); Calcium 8.4 mg/dL (8.4-10.2); Carbon Dioxide 30 mmol/L (22-30); Chloride 94 mmol/L (98-107); Cholesterol 107 mg/dL (0-200); Estimated Glomerular Filt Rate > 60; Glucose 81 mg/dL (65-110); HDL Direct 33 mg/dL; Potassium 3.6 mmol/L (3.4-5.0); Sodium 135 mmol/L (137-145); Triglycerides 129 mg/dL (<150)
[2022-03-09 17:57] LABS: LDL Cholesterol Direct 56 mg/dL
[2022-03-09 18:00] LABS: Vitamin D 25 Hydroxy 46.1 ng/mL
== END 2022-03-09 17:03 | disposition home or self-care (01) ==
LOC: ANHLAB 17:04
PROVIDERS: PCP Internal Medicine; Visit Provider Internal Medicine
DX: E78.5 Hyperlipidemia, unspecified (principal); Z79.4 Long term (current) use of insulin; I10 Essential (primary) hypertension; E78.2 Mixed hyperlipidemia; E11.65 Type 2 diabetes mellitus with hyperglycemia; E53.8 Deficiency of other specified B group vitamins; E55.9 Vitamin D deficiency, unspecified; D64.9 Anemia, unspecified
CPT/HCPCS: 36415; 80053; 80061; 82306; 82607; 83036; 85025

== ENCOUNTER 2022-09-30 14:25 | Outpatient (CLI) | payer OTHER, SELFPAY ==
[2022-09-30 15:41] LABS: Alanine Aminotransferase 22 U/L (6-50); Albumin Level 4.2 g/dL (3.5-5.1); Alkaline Phosphatase 64 U/L (38-126); Anion Gap 7 mmol/L (8-16); Aspartate Amino Transferase 23 U/L (17-59); Bilirubin,Total 0.6 mg/dL (0.2-1.3); Blood Urea Nitrogen 12 mg/dL (9-20); Calcium 8.4 mg/dL (8.4-10.2); Carbon Dioxide 30 mmol/L (22-30); Chloride 97 mmol/L (98-107); Cholesterol 110 mg/dL (0-200); Estimated Glomerular Filt Rate > 60; Glucose 128 mg/dL (65-110); HDL Direct 34 mg/dL; Potassium 3.3 mmol/L (3.4-5.0); Sodium 134 mmol/L (137-145); Triglycerides 127 mg/dL (<150)
[2022-09-30 15:46] LABS: Hemoglobin A1C 6.3 % (<5.7)
[2022-09-30 15:52] LABS: LDL Cholesterol Direct 58 mg/dL
[2022-09-30 17:02] LABS: Vitamin D 25 Hydroxy 38.9 ng/mL
== END 2022-09-30 14:26 | disposition home or self-care (01) ==
PROVIDERS: Internal Medicine; PCP Family Medicine; Visit Provider Family Medicine
DX: E78.5 Hyperlipidemia, unspecified (principal); E11.9 Type 2 diabetes mellitus without complications; I10 Essential (primary) hypertension; E53.8 Deficiency of other specified B group vitamins; E55.9 Vitamin D deficiency, unspecified
CPT/HCPCS: 36415; 80053; 80061; 82306; 82607; 83036

== ENCOUNTER 2022-10-06 08:31 | Outpatient (CLI) | payer OTHER, SELFPAY ==
--- NOTE | ~2022-10-06 | US_ITS ---
EXAMINATION: US renal BI DATE: 10/06/2022 09:30 INDICATION: Renal cyst TECHNIQUE: Multiple ultrasound grayscale images of the kidneys were obtained. COMPARISON: CT dated 10/21/2019 FINDINGS: The right kidney measures 12.8 x 5.1 x 5.5 cm. The left kidney measures 12.1 x 7.0 x 7.9 cm. The kidn eys demonstrate normal echogenicity with diffuse lateral cortical thinning consistent with likely age -related atrophy. 8.2 cm exophytic anechoic cyst at the mid left kidney with partially visualized shereen ear echogenic internal septation. There is no hydronephrosis in either kidney. No shadowing renal st ones identified. The bladder appears normal but is partially decompressed which limits evaluation. IMPRESSION: 1. Diffuse mild bilateral renal cortical atrophy. 2. 8.2 cm Bosniak 2 left renal cyst with single thin internal septation. No hydronephrosis. Reviewed, dictated and finalized at location A. IMPRESSION: 1. Diffuse mild bilateral renal cortical atrophy. 2. 8.2 cm Bosniak 2 left renal cyst with single thin internal septation. No hyd ronephrosis.
== END 2022-10-06 08:32 | disposition home or self-care (01) ==
PROVIDERS: PCP Family Medicine; Visit Provider Nurse Practitioner Family
DX: N28.1 Cyst of kidney, acquired (principal)
CPT/HCPCS: 76775

== ENCOUNTER 2022-10-16 07:32 | Emergency (ER) | payer OTHER, SELFPAY ==
[2022-10-16] VITALS (19 sets, daily range): BP systolic 123–150; BP diastolic 70–96; PULSE 80; RESP 20; TEMP 36.6; O2SAT 91–99
--- NOTE | ~2022-10-16 | CT_ITS ---
EXAMINATION: CT cervical spine wo con DATE: 10/16/2022 08:42 INDICATION: Finger numbness. Fall. TECHNIQUE: Computed tomography (CT) of the cervical spine was performed without intravenous contrast. Automated exposure control and iterative reconstruction technique were employed. The dose-length pro duct was 604.27 mGy-cm. COMPARISON: None FINDINGS: There is kyphosis of cervical spine. There is mild chronic anterior wedging of C5 vertebral body. There is mildly decreased disc height at C2-C3 and moderate to severely decreased disc height from C5-C6 through C7-T1. Osseous central spinal canal is developmentally small. The following disc l evels are specifically discussed: C2-C3: There is mild right uncovertebral joint osteoarthritis. There is severe bilateral facet joint osteoarthritis. There is moderate right and mild left neural foraminal stenosis. There is mild centra l canal stenosis. C3-C4: There is ankylosis of the right uncovertebral joint with moderate hypertrophy. There is ankylo sis of the facet joints with moderate right and mild left hypertrophy. There is moderate right and mi ld left neural foraminal stenosis. There is mild central canal stenosis. C4-C5: There is mild right uncovertebral joint osteoarthritis. There is ankylosis of left facet joint with severe hypertrophy. There is moderate right facet joint osteoarthritis. There is ankylosis of l eft facet joint with severe hypertrophy. There is moderate left neural foraminal stenosis. There is m ild central canal stenosis. C5-C6: There is severe bilateral uncovertebral joint osteoarthritis. There is moderate right and mild left facet joint osteoarthritis. There is mild right and moderate left neural foraminal stenosis. Th ere is mild central canal stenosis. C6-C7: There is severe bilateral uncovertebral joint osteoarthritis. There is ankylosis of right unco vertebral joint. There is moderate bilateral facet joint osteoarthritis. There is mild bilateral neur al foraminal stenosis. There is mild central canal stenosis. C7-T1: There is severe bilateral uncovertebral joint osteoarthritis. There is severe bilateral facet joint osteoarthritis. There is mild bilateral neural foraminal stenosis. There is no central canal st enosis. IMPRESSION: 1. No fracture. 2. Moderate cervical spondylosis. Reviewed, dictated and finalized at location A.
--- NOTE | ~2022-10-16 | XR_ITS ---
EXAMINATION: XR wrist RT min 3V INDICATION: Right wrist pain TECHNIQUE: Four views of the right wrist are obtained. COMPARISON: None available FINDINGS: Bone alignment is normal. There is no fracture. There is moderate osteoarthritis at the tri scaphe, first carpometacarpal, and first metacarpophalangeal joints. The soft tissues are unremarkabl e. IMPRESSION: 1. Osteoarthritis without acute osseous abnormality. Reviewed, dictated and finalized at location B.
--- NOTE | ~2022-10-16 | CT_ITS ---
EXAMINATION: CT brain wo con DATE: 10/16/2022 08:42 INDICATION: Head injury. TECHNIQUE: Computed tomography (CT) of the head was performed without intravenous contrast. The mA wa s adjusted according to patient size. Iterative reconstruction technique was employed. The dose-lengt h product was 681.00 mGy-cm. COMPARISON: None FINDINGS: There is an old infarct in right cerebellum. There are scattered areas of low attenuation i n the cerebral white matter, which is within normal limits for the patient's age. The ventricles are normal in size. The orbits are normal. There is mild mucosal thickening in the paranasal sinuses. The mastoid air cells are normal. There is a right frontal scalp hematoma. There are sialoliths in the p arotid glands. IMPRESSION: 1. 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 Reviewed, dictated and finalized at location A.
--- NOTE | 2022-10-16 07:50 | PC.NURSE ---
attempted get pt in bed, refused, requested to stay in wheelchair for comfort.
--- NOTE | 2022-10-16 10:51 | ED.UPPEXIN ---
HPI - Extremity Injury (Upper) General Chief Complaint: Extremity Injury, Upper Stated Complaint: fall, R. hand numbness Time Seen by Provider: 10/16/22 07:59 Source: patient and RN notes reviewed Mode of arrival: wheelchair Limitations: no limitations History of Present Illness HPI narrative: This is a 76 year old male who presents for evaluation of finger numbness. He states that he accidentally fell 6 days ago hitting his headache. HE denies having LOC at that time and he did not go to hospital for evaluation. He states the following day he noticed numbness to right first -third finger numbness. He states this has continued for the past 5 days. He denies headache, nausea, vomiting, arm or leg weakness. He denies leg numbness. 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 Related Data Home Medications Medication Instructions Recorded Confirmed ascorbic acid (vitamin C) 1,000 mg 1 g PO DAILY 03/10/19 03/12/22 tablet (Vitamin C) multivitamin with minerals 1 tablet PO DAILY 03/10/19 03/12/22 (Hair,Skin and Nails tablet) multivitamin,tx-nyyq-pcozsult 1 tablet PO DAILY 03/10/19 03/12/22 (Complete Multivitamin tablet) psyllium husk 0.4 gram capsule 4 g PO BID 03/10/19 03/12/22 (Metamucil) vitamin E 670 mg (1,000 unit) 1,000 unit PO DAILY 03/10/19 03/12/22 capsule aspirin 81 mg tablet,delayed 81 mg PO DAILY 03/12/20 03/12/22 release (Karime Low Dose Aspirin) Allergies Allergy/AdvReac Type Severity Reaction Status Date / Time quinapril Allergy Intermediate Hives Verified 10/01/22 14:16 bupropion Allergy Mild Hives/Red Verified 10/01/22 14:16 face latex Allergy Mild Blister Verified 10/01/22 14:16 Review of Systems Constitutional: Constitutional: Denies weakness Cardiovascular: Cardiovascular: Denies syncope, Denies rapid heart rate, Denies irregular heart rhythm, Denies leg edema and Denies dyspnea Respiratory: Respiratory: Denies chest congestion, Denies hemoptysis, Denies excessive phlegm production and Denies dyspnea Gastrointestinal: Gastrointestinal: Denies abdominal pain, Denies hematochezia, Denies diarrhea and Denies vomiting Genitourinary: Genitourinary: Denies hematuria, Denies dysuria, Denies penile discharge and Denies testicular pain Musculoskeletal: Musculoskeletal: Denies joint swelling, Denies loss of height and Denies muscle weakness Neurologic: Denies syncope, Denies focal weakness, Reports numbness and Denies weakness [facility] Past Medical History Medical History Arthritis COPD (chronic obstructive pulmonary disease) CVA (cerebral vascular accident) Diabetes Hyperlipidemia Hypertension Morbid obesity SUHA (obstructive sleep apnea) Peripheral neuropathy Tobacco use Family History Family History Father Hypertension Cerebrovascular accident Grandparent Family history of malignant neoplasm Family history of congestive heart failure Mother Family history of malignant neoplasm of breast in first degree relative Social History Social History Smoking packs per day: 2 Smoking cigarettes per day: 40.0 Years smoked: 50 Smoking pack-years: 100.00 Smoking status: Current every day smoker Tobacco type: cigarettes Additional smoking assessment comments: STATES 2PK/DAY/50+YRS Alcohol intake: current Drinks per week: 2 Alcohol use details: social Substance use: former Other substance usage details: STATES CBD OIL IN THE PAST Lack of Transportation: No Lack of Food: Never True Current Housing: I Have Housing Concerned About Future Housing: No Difficulty Paying Gas/Electric Bills: No Difficulty Paying for Meds: No Currently Unemployed: No Education: Bachelor's Degree Difficulty w/ Childcare or Family Care: No Living arrangements: alone Spiritual care concerns: No Exam Const: General: alert Nutritio
== END 2022-10-16 11:06 | disposition home or self-care (01) ==
PROVIDERS: Emergency Provider General Practice; PCP Family Medicine
DX: R20.2 Paresthesia of skin (principal); S00.83XA Contusion of other part of head, initial encounter; E78.5 Hyperlipidemia, unspecified; E11.9 Type 2 diabetes mellitus without complications; I10 Essential (primary) hypertension; G47.33 Obstructive sleep apnea (adult) (pediatric); G62.9 Polyneuropathy, unspecified; M18.9 Osteoarthritis of first carpometacarpal joint, unspecified; M19.031 Primary osteoarthritis, right wrist; M19.041 Primary osteoarthritis, right hand; E66.01 Morbid (severe) obesity due to excess calories; Z68.39 Body mass index [BMI] 39.0-39.9, adult; Z86.73 Personal history of transient ischemic attack (TIA), and cerebral infarction without residual deficits; Z79.82 Long term (current) use of aspirin; F17.210 Nicotine dependence, cigarettes, uncomplicated; M47.812 Spondylosis without myelopathy or radiculopathy, cervical region; W19.XXXA Unspecified fall, initial encounter
CPT/HCPCS: 70450; 72125; 73110; 99284

== ENCOUNTER 2022-10-21 13:07 | Outpatient (CLI) | payer OTHER, SELFPAY ==
[2022-10-21 13:58] LABS: Anion Gap 5 mmol/L (8-16); Blood Urea Nitrogen 15 mg/dL (9-20); Calcium 8.6 mg/dL (8.4-10.2); Carbon Dioxide 35 mmol/L (22-30); Chloride 93 mmol/L (98-107); Estimated Glomerular Filt Rate > 60; Glucose 147 mg/dL (65-110); Potassium 3.9 mmol/L (3.4-5.0); Sodium 133 mmol/L (137-145)
== END 2022-10-21 13:08 | disposition home or self-care (01) ==
LOC: ANHLAB 13:08
PROVIDERS: PCP Family Medicine; Visit Provider Nurse Practitioner Family
DX: E87.6 Hypokalemia (principal)
CPT/HCPCS: 36415; 80048

== ENCOUNTER 2022-11-25 12:50 | Outpatient (CLI) | payer OTHER, SELFPAY ==
--- NOTE | 2022-11-25 14:00 | NEURO_ITS ---
Impression: # Complains of numbness of right 1st and 2nd fingers secondary to a fall. # Right moderate Carpal Tunnel Syndrome. # No ulnar neuropathy. # Normal needle/EMG exam. Nerve Conduction Studies Anti Sensory Summary Table Stim Site NR Peak (ms) P-T Amp (?V) Site1 Site2 Delta-P (ms) Dist (cm) Terrance (m/s) Right Median Anti Sensory (2-3nd Digit) Wrist 6.3 29.2 Wrist 2-3nd Digit 6.3 14.0 22 Wrist 6.3 10.2 Wrist 2-3nd Digit 6.3 14.0 22 Right Radial Anti Sensory (Base 1st Digit) Wrist 2.2 8.5 Wrist Base 1st Digit 2.2 0.0 Right Ulnar Anti Sensory (5th Digit) Wrist 6.3 11.1 Wrist 5th Digit 6.3 14.0 22 Motor Summary Table Stim Site NR Onset (ms) O-P Amp (mV) Site1 Site2 Delta-0 (ms) Dist (cm) Terrance (m/s) Right Median Motor (Abd Poll Brev) Wrist 5.2 0.4 Elbow Wrist 6.2 34.0 55 Elbow 11.4 0.4 Right Ulnar Motor (Abd Dig Minimi) Wrist 3.0 4.4 A Elbow Wrist 6.1 34.0 56 A Elbow 9.1 2.7 F Wave Studies NR F-Lat (ms) L-R F-Lat (ms) Right Median (Mrkrs) (Abd Poll Brev) 30.94 Right Ulnar (Mrkrs) (Abd Dig Min) 30.51 EMG Side Muscle Nerve Root Ins Act Fibs Amp Dur Recrt Comment Right 1stDorInt Ulnar C8-T1 Nml Nml Nml Nml Nml Right Ext Indicis Radial (Post Int) C7-8 Nml Nml Nml Nml Nml Right Ext Digitorum Radial (Post Int) C7-8 Nml Nml Nml Nml Nml Right BrachioRad Radial C5-6 Nml Nml Nml Nml Nml Right PronatorTeres Median C6-7 Nml Nml Nml Nml Nml Right Abd Poll Brev Median C8-T1 Nml Nml Nml Nml Nml Right ABD Dig Min Ulnar C8-T1 Nml Nml Nml Nml Nml MTDD
== END 2022-11-25 12:51 | disposition home or self-care (01) ==
LOC: ANHNEURO 12:52
PROVIDERS: PCP Family Medicine; Visit Provider Nurse Practitioner
DX: G56.01 Carpal tunnel syndrome, right upper limb (principal)
CPT/HCPCS: 95886; 95909

== ENCOUNTER 2023-04-06 16:49 | Outpatient (CLI) | payer OTHER, SELFPAY ==
[2023-04-06 17:13] LABS: Basophils Absolute Auto 0.1 K/mm3 (0.0-0.1); Basophils Percent Auto 0.7 % (0.2-1.2); Eosinophils Absolute Auto 0.4 K/mm3 (0-0.3); Eosinophils Percent Auto 3.7 % (0-4.4); Hematocrit 40.3 % (42.0-52.0); Hemoglobin 13.4 g/dL (14.0-18.0); Immature Granulocyte Absolute 0.03 K/mm3 (0.00-0.031); Immature Granulocyte Percent A 0.3 % (0-0.5); Lymphocytes Absolute Auto 2.19 K/mm3 (0.9-3.2); Lymphocytes Percent Auto 21.7 % (18.3-44.2); Mean Corpuscular HGB Conc 33.3 g/dl (32-36); Mean Corpuscular Hemoglobin 31.5 pg (26-34); Mean Corpuscular Volume 94.6 fl (80-100); Mean Platelet Volume 11.1 fl (7.4-10.4); Monocytes Absolute Auto 0.7 K/mm3 (0.1-0.6); Neutrophils Absolute Auto 6.7 K/mm3 (1.3-6.7); Neutrophils Percent Auto 66.6 % (45.5-73.1); Platelet Count Result 155 k/mm3 (150-375); Red Blood Count 4.26 M/mm3 (4.6-6.20); Red Cell Distribution Width 14.3 % (11.5-14.5); White Blood Count 10.1 K/mm3 (4.5-10.0)
[2023-04-06 17:24] LABS: Alanine Aminotransferase 19 U/L (6-50); Albumin Level 4.1 g/dL (3.5-5.1); Alkaline Phosphatase 60 U/L (38-126); Anion Gap 8 mmol/L (8-16); Aspartate Amino Transferase 20 U/L (17-59); Bilirubin,Total 0.6 mg/dL (0.2-1.3); Blood Urea Nitrogen 10 mg/dL (9-20); Calcium 8.9 mg/dL (8.4-10.2); Carbon Dioxide 31 mmol/L (22-30); Chloride 95 mmol/L (98-107); Estimated Glomerular Filt Rate > 60; Glucose 103 mg/dL (65-110); Sodium 134 mmol/L (137-145)
[2023-04-06 18:19] LABS: Iron 57 ug/dL (49-181)
[2023-04-06 18:26] LABS: Vitamin D 25 Hydroxy 56.6 ng/mL
[2023-04-06 18:28] LABS: Percent Iron Saturation 17 % (20-50)
[2023-04-06 19:54] LABS: Hemoglobin A1C 5.7 % (<5.7)
== END 2023-04-06 16:50 | disposition home or self-care (01) ==
LOC: ANHLAB 16:52
PROVIDERS: PCP Family Medicine; Visit Provider Nurse Practitioner Family
DX: E55.9 Vitamin D deficiency, unspecified (principal); I10 Essential (primary) hypertension; E11.9 Type 2 diabetes mellitus without complications; D64.9 Anemia, unspecified
CPT/HCPCS: 36415; 80053; 82306; 83036; 83540; 83550; 85025

== ENCOUNTER 2023-05-05 12:36 | Outpatient (CLI) | payer OTHER, SELFPAY ==
--- NOTE | ~2023-05-05 | CT_ITS ---
EXAMINATION: CT lung screening DATE: 05/05/2023 13:34 INDICATION: Personal history nicotine dependence, current smoker with 50 pack year history TECHNIQUE: Computed tomography (CT) of the chest was performed without intravenous contrast. The dose -length product (DLP) was 464.58 mGy-cm. Automated exposure control and iterative reconstruction tech [employer] were employed. COMPARISON: 11/27/2021 FINDINGS: There is mild emphysema. There is a stable 7 mm part solid subpleural nodule in the left up per lobe. There is a 3 mm nodule of the right lower lobe on image 95. There is a 3 mm nodule of the l eft lower lobe on image 74. There is mild atelectasis. No pleural effusion or pneumothorax. Healed le ft-sided rib fractures are noted. No pathologically enlarged thoracic lymph nodes are identified. The heart size is normal. Coronary artery atherosclerosis is noted. There is a chronic small pericardial effusion. There is mild thoracic spondylosis. IMPRESSION: 1. Lung-RADS category 2: Benign appearance or behavior. Continue annual screening with noncontrast lo w-dose chest CT in 12 months. Reviewed, dictated and finalized at location B. 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 Lung-RADS category 2: Benign appearance or behavior. Continue annual screeni ng with noncontrast low-dose chest CT in 12 months.
--- NOTE | ~2023-05-05 | US_ITS ---
EXAMINATION: US renal BI DATE: 05/05/2023 13:33 INDICATION: Acquired cyst of the kidney TECHNIQUE: Multiple grayscale and Doppler ultrasound images of the kidneys were obtained. COMPARISON: 10/06/2022 FINDINGS: The right kidney measures 13.6 x 5.1 x 5.7 cm. The left kidney measures 12.7 x 5.6 x 5.2 cm . There is an 8 cm exophytic cyst arising from the left kidney. The previously described thin septati on is not definitely identified. The kidneys demonstrate normal parenchymal echogenicity. There is no hydronephrosis. The bladder is normal. IMPRESSION: 1. Simple appearing cyst of the left kidney. Reviewed, dictated and finalized at location B. SHER DIAL
== END 2023-05-05 12:37 | disposition home or self-care (01) ==
PROVIDERS: PCP Family Medicine; Visit Provider Nurse Practitioner Family
DX: Z12.2 Encounter for screening for malignant neoplasm of respiratory organs (principal); Z87.891 Personal history of nicotine dependence; N28.1 Cyst of kidney, acquired
CPT/HCPCS: 71271; 76775

== ENCOUNTER 2023-05-06 13:59 | Outpatient (CLI) | payer OTHER, SELFPAY ==
--- NOTE | ~2023-05-06 | XR_ITS ---
EXAM: XR finger 2nd LT min 2V DATE: 05/06/2023 14:16 HISTORY: UNABLE TO STRAIGHTEN 2ND FINGER . COMPARISON: None available. FINDINGS: Normal mineralization. The second finger is held in slight flexion at the PIP joint and sl ight extension at the DIP joint. No fracture or dislocation. No lytic or blastic lesion. Moderate sca ttered degenerative changes. Severe degenerative change at the trapeziometacarpal joint. No erosion o r periosteal change. Soft tissues within normal limits. IMPRESSION: No acute osseous abnormality detected in the left second finger. Polyarticular osteoarthr itis. Reviewed, dictated and finalized at location K. RGLASSER IMPRESSION: No acute osseous abnormality detected in the left second finger. Po lyarticular osteoarthritis.
== END 2023-05-06 14:00 | disposition home or self-care (01) ==
LOC: ANHIMG 14:01
PROVIDERS: PCP Family Medicine; Visit Provider Family Medicine
DX: M19.042 Primary osteoarthritis, left hand (principal); M79.89 Other specified soft tissue disorders
CPT/HCPCS: 73140

== ENCOUNTER 2023-05-14 14:37 | Outpatient (CLI) | payer OTHER, SELFPAY ==
--- NOTE | 2023-05-14 14:56 | ECHO_ITS ---
Patient Info Name: Partha Robbins Age: 77 years : 1945 Gender: Male Ht: 73 in Wt: 318 lbs BSA: 2.79 m2 HR: 78 bpm BP: 169 / 85 mmHg Technical Quality: Fair Exam Date: 05/14/2023 3:18 PM Exam Location: Echo Lab Patient Status: Outpatient Admit Date: 05/14/2023 Staff Ordering Physician: Joseph Esposito MD Boss Dyer: Alethea Ruiz RDCS Attending Provider: Corina Segovia APRN Referring Physician: Vaibhav YUN; Exam Type: CA echo doppler color flow Study Info Indications R60.9 - Edema, unspecified Complete two-dimensional, color flow and Doppler transthoracic echocardiogram is performed. Summary 1. Complete two-dimensional, color flow and Doppler transthoracic echocardiogram is performed. 2. Left ventricular chamber dimension is mildly enlarged. 3. Left ventricular systolic function is normal, estimated at 60-65%. 4. There is mild concentric increased left ventricular wall thickness. 5. The left ventricular diastolic function is grade I diastolic dysfunction. 6. E/e' 9 is minimally elevated. 7. Left atrial chamber dimension is moderately enlarged. 8. Right atrial chamber dimension is moderately enlarged. 9. There is mild aortic valve sclerosis. 10. The mitral valve has mildly calcified annulus. 11. There is mild mitral valve regurgitation. 12. There is trace tricuspid valve regurgitation. 13. No pulmonary hypertension, estimated pulmonary arterial systolic pressure is 32 mmHg. 14. There is trace to small right sided pericardial effusion. Left Ventricle E/e' 9 is minimally elevated. Left ventricular chamber dimension is mildly enlarged. Left ventricular systolic function is normal, estimated at 60-65%. There is mild concentric increased left ventricular wall thickness. The left ventricular diastolic function is grade I diastolic dysfunction. Right Ventricle Right ventricular systolic function is normal and with normal TAPSE 2.4 cm. Right ventricular chamber dimension is normal. Left Atria Left atrial chamber dimension is moderately enlarged. Right Atria Right atrial chamber dimension is moderately enlarged. Aortic Valve The aortic valve is probable trileaflet. There is mild aortic valve sclerosis. There is no aortic valve stenosis. There is no aortic valve regurgitation. Pulmonic Valve There is no pulmonic regurgitation. Mitral Valve The mitral valve has mildly calcified annulus. There is no mitral valve stenosis. There is mild mitral valve regurgitation. Tricuspid Valve There is trace tricuspid valve regurgitation. No pulmonary hypertension, estimated pulmonary arterial systolic pressure is 32 mmHg. Pericardium/Pleural There is trace to small right sided pericardial effusion. No cardiac tamponade. Inferior Vena Cava Normal inferior vena cava with >50% collapse upon inspiration consistent with normal right atrial pressure, 5 mmHg. Aorta The aortic root size at the sinus of Valsalva is normal. Left Ventricular Outflow Tract Name Value Normal LVOT 2D LVOT Diameter 2.1 cm LVOT Doppler LVOT Peak Gradient 5 mmHg LVOT Mean Gradient 3 mmHg LVOT VTI 29 cm LVOT VTI/AV VT
== END 2023-05-14 14:38 | disposition home or self-care (01) ==
PROVIDERS: PCP Family Medicine; Visit Provider Nurse Practitioner Family
DX: R60.9 Edema, unspecified (principal); R06.9 Unspecified abnormalities of breathing; I08.3 Combined rheumatic disorders of mitral, aortic and tricuspid valves
CPT/HCPCS: 93306

== ENCOUNTER 2023-06-16 00:19 | Day surgery (SDC) | payer OTHER, SELFPAY ==
[2023-05-20 09:41] VITALS: BMI 41.0
--- NOTE | 2023-06-14 12:53 | SUR.PREOP ---
Patient called regarding upcoming procedure. Pt updated on arrival date and time. All questions answered.
[2023-06-16 11:56] VITALS: BP 159/66; PULSE 76; RESP 20; TEMP 36; O2SAT 95
--- NOTE | 2023-06-16 11:57 | WPDANESEPPF ---
Anes - Initial Pre Proc Eval Procedure: Operation Date: 06/16/23 13:00 Proposed Procedures p Screening Colonoscopy - Ovi Raphael MD Date/Time: 06/16/23 11:57 Surgeon: Ovi Raphael MD Pre Op Diagnosis: hx colon polyps Patient Data Age: 77 Gender: M Height: 1.85 m Weight: 141 kg Allergies Allergy/AdvReac Type Severity Reaction Status Date / Time quinapril Allergy Intermediate Hives Verified 06/16/23 11:55 bupropion Allergy Mild Hives/Red Verified 06/16/23 11:55 face latex Allergy Mild Blister Verified 06/16/23 11:55 Home Medications Medication Instructions Recorded Confirmed Type ascorbic acid (vitamin C) 1,000 mg 1 g PO DAILY 03/10/19 05/20/23 History tablet (Vitamin C) multivitamin with minerals 1 tablet PO DAILY 03/10/19 05/20/23 History (Hair,Skin and Nails tablet) multivitamin,dy-axxx-nyaqxtcx 1 tablet PO DAILY 03/10/19 05/20/23 History (Complete Multivitamin tablet) psyllium husk 0.4 gram capsule 4 g PO BID 03/10/19 05/20/23 History (Metamucil) vitamin E 670 mg (1,000 unit) 1,000 unit PO DAILY 03/10/19 05/20/23 History capsule aspirin 81 mg tablet,delayed 81 mg PO DAILY 03/12/20 05/20/23 History release (Karime Low Dose Aspirin) mecobalamin (vitamin B12) 1,000 1,000 mcg sublingual DAILY #90 tabs 06/24/20 05/20/23 Rx mcg disintegrating tablet,sublingual sildenafil 100 mg tablet See Rx Instructions .Route 12/07/22 05/20/23 Rx .COMPLEX #4 tabs metoprolol succinate 100 mg 150 mg PO DAILY #135 tabs 01/04/23 05/20/23 Rx tablet,extended release 24 hr bumetanide 1 mg tablet 1 mg PO DAILY #90 tabs 01/20/23 05/20/23 Rx rosuvastatin 20 mg tablet 20 mg PO DAILY #90 tabs 03/23/23 05/20/23 Rx ferrous sulfate 325 mg (65 mg 325 mg PO DAILY #90 tabs 04/05/23 05/20/23 Rx iron) tablet semaglutide 2 mg/dose (8 mg/3 mL) 2 mg (0.75 mL) subcut WEEKLY #3 04/07/23 05/20/23 Rx subcutaneous pen injector syringes fluticasone fur. 100 mcg-umeclid 1 inh inhalation DAILY #60 ea 04/27/23 05/20/23 Rx 62.5 mcg-vilant 25 mcg inhalat.powder (Trelegy Ellipta) diltiazem HCl 360 mg capsule,24 360 mg PO DAILY 05/20/23 05/20/23 History hr,extended release (Tiadylt ER) hydralazine 10 mg tablet 10 mg PO TID 05/20/23 05/20/23 History metformin 1,000 mg tablet 1,000 mg PO BID 05/20/23 05/20/23 History potassium chloride 20 mEq 20 meq PO BID 05/20/23 05/20/23 History tablet,extended release(part/cryst) (Klor-Con M) doxazosin 8 mg tablet 8 mg PO DAILY #90 tabs 05/21/23 Rx Patient hx anesthesia problems: none Family hx anesthesia problems: none Results Review: All pre-operative results and documents have been reviewed as part of the pre-operative evaluation. [facility]LY [facility] Past Medical History Medical History Arthritis COPD (chronic obstructive pulmonary disease) CVA (cerebral vascular accident) Diabetes Hyperlipidemia Hypertension Morbid obesity SUHA (obstructive sleep apnea) Peripheral neuropathy Tobacco use Family History Family History Father Hypertension Cerebrovascular accident Grandparent Family history of malignant neoplasm Family history of congestive heart failure Mother Family history of malignant neoplasm of breast in first degree relative Social History Social History Smoking packs per day: 2 Smoking cigarettes per day: 40.0 Years smoked: 55 Smoking pack-years: 110.00 Smoking status: Current every day smoker Tobacco type: cigarettes Additional smoking assessment comments: STATES 2PK/DAY/50+YRS Alcohol intake: current Drinks per week: 2 Alcohol use details: rarely Substance use: current Substance use type: marijuana Other substance usage details: STATES CBD OIL IN THE PAST Last use: gummies occasional Lack of Transportation: No Lack of Food: Never True Current Housing: I Have H
--- NOTE | 2023-06-16 11:57 | PM.HPGS ---
History of Present Illness History of Present Illness Consent: Risks, benefits, and alternatives have been discussed and questions answered. Patient agrees to proceed with procedure. Chief complaint: hx colon polyps Narrative: Partha Robbins is a 77 year old male here for screening colonoscopy, last colonoscopy years ago Review of Systems Constitutional: Constitutional: Denies headache(s) and Denies weakness Eyes: Eyes: Denies blurry vision ENT: Reports Normal hearing present, Denies headache(s) and Denies neck pain Cardiovascular: Cardiovascular: Denies chest pain and Denies dyspnea Respiratory: Respiratory: Denies dyspnea Gastrointestinal: Gastrointestinal: Reports no additional gastrointestinal complaints Genitourinary: Genitourinary: Denies dysuria Musculoskeletal: Musculoskeletal: Denies neck pain Integumentary/Breasts: Skin/Breast: Denies dry skin Neurologic: Reports Normal hearing present, Denies headache(s) and Denies weakness Psychiatric: Psychiatric: Denies anxiety Endocrine: Endocrine: Denies change in body appearance Hematologic/Lymphatic: Hematologic/Lymphatic: Denies easy bleeding Allergic/Immunologic: Allergic/Immunologic: Denies urticaria PMFSH Past Medical History Medical History Arthritis COPD (chronic obstructive pulmonary disease) CVA (cerebral vascular accident) Diabetes Hyperlipidemia Hypertension Morbid obesity SUHA (obstructive sleep apnea) Peripheral neuropathy Tobacco use Family History Family History Father Hypertension Cerebrovascular accident Grandparent Family history of malignant neoplasm Family history of congestive heart failure Mother Family history of malignant neoplasm of breast in first degree relative Social History Social History Smoking packs per day: 2 Smoking cigarettes per day: 40.0 Years smoked: 55 Smoking pack-years: 110.00 Smoking status: Current every day smoker Tobacco type: cigarettes Additional smoking assessment comments: STATES 2PK/DAY/50+YRS Alcohol intake: current Drinks per week: 2 Alcohol use details: rarely Substance use: current Substance use type: marijuana Other substance usage details: STATES CBD OIL IN THE PAST Last use: gummies occasional Lack of Transportation: No Lack of Food: Never True Current Housing: I Have Housing Concerned About Future Housing: No Difficulty Paying Gas/Electric Bills: No Difficulty Paying for Meds: No Currently Unemployed: No Education: Bachelor's Degree Difficulty w/ Childcare or Family Care: No Living arrangements: alone Spiritual care concerns: No Meds Home Medications and Allergies Home Medications Medication Instructions Recorded Confirmed Type ascorbic acid (vitamin C) 1,000 mg 1 g PO DAILY 03/10/19 05/20/23 History tablet (Vitamin C) multivitamin with minerals 1 tablet PO DAILY 03/10/19 05/20/23 History (Hair,Skin and Nails tablet) multivitamin,cu-izoe-egfiepyh 1 tablet PO DAILY 03/10/19 05/20/23 History (Complete Multivitamin tablet) psyllium husk 0.4 gram capsule 4 g PO BID 03/10/19 05/20/23 History (Metamucil) vitamin E 670 mg (1,000 unit) 1,000 unit PO DAILY 03/10/19 05/20/23 History capsule aspirin 81 mg tablet,delayed 81 mg PO DAILY 03/12/20 05/20/23 History release (Karime Low Dose Aspirin) mecobalamin (vitamin B12) 1,000 1,000 mcg sublingual DAILY #90 tabs 06/24/20 05/20/23 Rx mcg disintegrating tablet,sublingual sildenafil 100 mg tablet See Rx Instructions .Route 12/07/22 05/20/23 Rx .COMPLEX #4 tabs metoprolol succinate 100 mg 150 mg PO DAILY #135 tabs 01/04/23 05/20/23 Rx tablet,extended release 24 hr bumetanide 1 mg tablet 1 mg PO DAILY #90 tabs 01/20/23 05/20/23 Rx rosuvastatin 20 mg tablet 20 mg PO DAILY #90 tabs 03/23/23 05/20/23 Rx ferrous sulfate 325 mg (65 mg 325 mg P
[2023-06-16] MEDS: LACTATED RINGERS 1,000 ML 150 ML IV CONT (12:09)
[2023-06-16 12:13] LABS: Glucose Point of Care 120 mg/dl (65-105)
[2023-06-16 12:39] VITALS: BP 115/69; PULSE 76; RESP 22; O2SAT 96
[2023-06-16 12:49] VITALS: BP 129/67; PULSE 72; RESP 20; O2SAT 97
[2023-06-16 12:59] VITALS: BP 135/68; PULSE 70; RESP 20; O2SAT 97
== END 2023-06-16 13:09 | disposition home or self-care (01) ==
PROVIDERS: PCP Family Medicine; Visit Provider Internal Medicine Gastroenterology
PROC: 0DJD8ZZ Inspection of Lower Intestinal Tract, Via Natural or Artificial Opening Endoscopic (ICD-10-PCS; CPT 45378; principal; 2023-06-16 13:00)
DX: Z12.11 Encounter for screening for malignant neoplasm of colon (principal); D12.3 Benign neoplasm of transverse colon; K64.8 Other hemorrhoids; J44.9 Chronic obstructive pulmonary disease, unspecified; E11.9 Type 2 diabetes mellitus without complications; E78.5 Hyperlipidemia, unspecified; I10 Essential (primary) hypertension; G47.33 Obstructive sleep apnea (adult) (pediatric); F17.210 Nicotine dependence, cigarettes, uncomplicated; F12.90 Cannabis use, unspecified, uncomplicated; E66.01 Morbid (severe) obesity due to excess calories; Z68.41 Body mass index [BMI] 40.0-44.9, adult; Z79.82 Long term (current) use of aspirin; Z79.85 Long-term (current) use of injectable non-insulin antidiabetic drugs; Z79.84 Long term (current) use of oral hypoglycemic drugs; Z86.79 Personal history of other diseases of the circulatory system; Z82.49 Family history of ischemic heart disease and other diseases of the circulatory system; Z80.3 Family history of malignant neoplasm of breast
CPT/HCPCS: 45385; 82948; 88305; J2704; J7120

== ENCOUNTER 2023-10-14 16:16 | Outpatient (CLI) | payer OTHER, SELFPAY ==
[2023-10-14 19:19] LABS: Alanine Aminotransferase 17 U/L (6-50); Albumin Level 4.2 g/dL (3.5-5.1); Alkaline Phosphatase 61 U/L (38-126); Anion Gap 6 mmol/L (4-12); Aspartate Amino Transferase 22 U/L (17-59); Bilirubin,Total 0.6 mg/dL (0.2-1.3); Blood Urea Nitrogen 13 mg/dL (9-20); Calcium 8.6 mg/dL (8.4-10.2); Carbon Dioxide 31 mmol/L (22-30); Chloride 97 mmol/L (98-107); Cholesterol 102 mg/dL (0-200); Estimated Glomerular Filt Rate > 60; Glucose 110 mg/dL (65-110); HDL Direct 33 mg/dL; Potassium 3.3 mmol/L (3.4-5.0); Sodium 134 mmol/L (137-145); Triglycerides 145 mg/dL (<150)
[2023-10-14 19:27] LABS: Creatinine Urine 82.5 mg/dL
[2023-10-14 19:31] LABS: LDL Cholesterol Direct 61 mg/dL
[2023-10-14 19:32] LABS: MALB Creatinine Ratio 20.5 mg/g (0-30); Microalbumin Urine Random 16.9 mg/L (0-16.7)
[2023-10-14 19:50] LABS: Prostate Specific Antigen 1.9 ng/mL (< OR = 4.0)
[2023-10-14 21:57] LABS: Hemoglobin A1C 6.1 % (<5.7)
== END 2023-10-14 16:17 | disposition home or self-care (01) ==
PROVIDERS: PCP Family Medicine; Visit Provider Family Medicine
DX: Z12.5 Encounter for screening for malignant neoplasm of prostate (principal); E11.9 Type 2 diabetes mellitus without complications
CPT/HCPCS: 36415; 80053; 80061; 82043; 83036; 84153; G0103

== ENCOUNTER 2023-11-27 13:03 | Outpatient (CLI) | payer OTHER, SELFPAY ==
[2023-11-27 14:05] LABS: Anion Gap 11 mmol/L (4-12); Blood Urea Nitrogen 14 mg/dL (9-20); Calcium 8.8 mg/dL (8.4-10.2); Carbon Dioxide 29 mmol/L (22-30); Chloride 95 mmol/L (98-107); Estimated Glomerular Filt Rate > 60; Glucose 122 mg/dL (65-110); Potassium 3.7 mmol/L (3.4-5.0); Sodium 135 mmol/L (137-145)
== END 2023-11-27 13:04 | disposition home or self-care (01) ==
LOC: ANHLAB 13:06
PROVIDERS: PCP Family Medicine; Visit Provider Family Medicine
DX: E87.6 Hypokalemia (principal)
CPT/HCPCS: 36415; 80048

== ENCOUNTER 2024-02-24 10:17 | Outpatient (CLI) | payer OTHER, SELFPAY ==
--- NOTE | ~2024-02-24 | US_ITS ---
EXAMINATION: US carotid duplex BI DATE: 02/24/2024 11:18 INDICATION: Infarct in right cerebellum. Branch retinal vein occlusion. TECHNIQUE: Grayscale, color Doppler, and pulsed Doppler images of the cervical carotid arteries were obtained. The degree of vessel stenosis is placed in one of the following categories: normal, <50%, 5 0-69%, >=70% but less than near-occlusion, near-occlusion, or total occlusion. Note that percent sten osis relative to normal distal artery lumen diameter is indirectly measured from velocity measurement s as described by Yahir, et al. Radiology 2003; 229:340-346. COMPARISON: None. FINDINGS: RIGHT: The right common carotid artery (CCA) peak systolic velocity (PSV) is 63 cm/s. The right internal car otid artery (ICA) PSV is 100 cm/s. The right ICA end-diastolic velocity (EDV) is 13 cm/s. The right I CA/CCA PSV ratio is 1.6. Grayscale and color Doppler images yield an estimate of <50% diameter reduct ion from plaque in the ICA. There is antegrade flow in the right vertebral artery. LEFT: The left CCA PSV is 91 cm/s. The left ICA PSV is 100 cm/s. The left ICA EDV is 22 cm/s. The left ICA/ CCA PSV ratio is 1.1. Grayscale and color Doppler images yield an estimate of <50% diameter reduction from plaque in the ICA. There is antegrade flow in the left vertebral artery. IMPRESSION: 1. <50% stenosis in the right internal carotid artery. 2. <50% stenosis in the left internal carotid artery. Reviewed, dictated and finalized at location A.
== END 2024-02-24 10:18 | disposition home or self-care (01) ==
PROVIDERS: PCP Family Medicine
DX: H34.8310 Tributary (branch) retinal vein occlusion, right eye, with macular edema (principal)
CPT/HCPCS: 93880

== ENCOUNTER 2024-05-01 11:49 | Outpatient (CLI) | payer OTHER, SELFPAY ==
[2024-05-01 12:12] LABS: Hematocrit 40.4 % (42.0-52.0); Hemoglobin 13.5 g/dL (14.0-18.0); Mean Corpuscular HGB Conc 33.4 g/dl (32-36); Mean Corpuscular Hemoglobin 31.6 pg (26-34); Mean Corpuscular Volume 94.6 fl (80-100); Mean Platelet Volume 11.3 fl (7.4-10.4); Platelet Count Result 153 k/mm3 (150-375); Red Blood Count 4.27 M/mm3 (4.6-6.20); Red Cell Distribution Width 14.3 % (11.5-14.5); White Blood Count 9.3 K/mm3 (4.5-10.0)
[2024-05-01 12:25] LABS: Alanine Aminotransferase 18 U/L (6-50); Albumin Level 4.1 g/dL (3.5-5.1); Alkaline Phosphatase 62 U/L (38-126); Anion Gap 4 mmol/L (4-12); Aspartate Amino Transferase 22 U/L (17-59); Bilirubin,Total 0.6 mg/dL (0.2-1.3); Blood Urea Nitrogen 12 mg/dL (9-20); Calcium 8.8 mg/dL (8.4-10.2); Carbon Dioxide 33 mmol/L (22-30); Chloride 99 mmol/L (98-107); Estimated Glomerular Filt Rate > 60; Glucose 129 mg/dL (65-110); Potassium 3.9 mmol/L (3.4-5.0); Sodium 136 mmol/L (137-145)
[2024-05-01 12:56] LABS: Hemoglobin A1C 6.1 % (<5.7)
[2024-05-01 13:13] LABS: Creatinine Urine 84.3 mg/dL
[2024-05-01 13:17] LABS: MALB Creatinine Ratio 24.1 mg/g (0-30); Microalbumin Urine Random 20.3 mg/L (0-16.7)
== END 2024-05-01 11:50 | disposition home or self-care (01) ==
LOC: ANHLAB 11:51
PROVIDERS: PCP Family Medicine; Visit Provider Family Medicine
DX: I63.9 Cerebral infarction, unspecified (principal); E11.9 Type 2 diabetes mellitus without complications
CPT/HCPCS: 36415; 80053; 82043; 83036; 85027

== ENCOUNTER 2024-11-02 14:15 | Outpatient (CLI) | payer OTHER, SELFPAY ==
--- OUTSIDE RECORDS SUMMARY | 2024-11-02 14:29 | XMS_ITS | Clinical Summary ---
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 Role Phone Unavailable Primary Care Provider Unavailabl e Social History Tobacco Use Types Packs/Day Years Used Date Smoking Tobacco: Never Assessed Sex and Gender Information Value Date Recorded Sex Assigned at Not on file Legal Sex Male 9:07 PM CDT Gender Identity Not on file Sexual Orientation Not on file Last Filed Vital Signs Vital Sign Reading Time Taken Comments Blood Pressure 162/84 10/06/2016 2:11 PM CDT Pulse 84 10/06/2016 2:11 PM CDT Temperature - - Respiratory Rate - - Oxygen Saturation - - Inhaled Oxygen Concentration - - Weight 145.2 kg (320 lb) 10/06/2016 2:11 PM CDT Height 185.4 cm (6' 1) 10/06/2016 2:11 PM CDT Body Mass Index 42.22 10/06/2016 2:11 PM CDT Plan of Treatment Health Maintenance Due Date Last Done Comments Hepatitis C 12/09/1963 DTaP, Tdap and Td Vaccines ( 1 - Tdap) 1964 Zoster Vaccines (1 of 2) 12/09/1995 RSV Immunization or 60+ Years (1 - 1-dose 75+ series) 2020 COVID-19 Vaccine ( - 2023-2 5 season) 2024 Pneumococcal Vaccine: 50+ Years Completed 03/14/2018, 02/15/2015 Meningococcal B Vaccine Aged Out No l onger eligible based on patient's age to complete this topic Meningococcal Vaccine Aged Out No nayana leigh ann eligible based on patient's age to complete this topic RSV Immunizations Under 20 Months Aged Out No longer eligible b ased on patient's age to complete this topic
[2024-11-02 15:02] LABS: Alanine Aminotransferase 18 U/L (6-50); Albumin Level 4.1 g/dL (3.5-5.1); Alkaline Phosphatase 64 U/L (38-126); Anion Gap 7 mmol/L (4-12); Aspartate Amino Transferase 22 U/L (17-59); Bilirubin,Total 0.5 mg/dL (0.2-1.3); Blood Urea Nitrogen 13 mg/dL (9-20); Calcium 8.9 mg/dL (8.4-10.2); Carbon Dioxide 31 mmol/L (22-30); Chloride 95 mmol/L (98-107); Cholesterol 103 mg/dL (0-200); Estimated Glomerular Filt Rate > 60; Glucose 110 mg/dL (65-110); HDL Direct 33 mg/dL; Hematocrit 41.7 % (42.0-52.0); Hemoglobin 13.5 g/dL (14.0-18.0); Mean Corpuscular HGB Conc 32.4 g/dl (32-36); Mean Corpuscular Hemoglobin 30.5 pg (26-34); Mean Corpuscular Volume 94.1 fl (80-100); Mean Platelet Volume 11.3 fl (7.4-10.4); Platelet Count Result 157 k/mm3 (150-375); Potassium 3.6 mmol/L (3.4-5.0); Red Blood Count 4.43 M/mm3 (4.6-6.20); Red Cell Distribution Width 14.6 % (11.5-14.5); Sodium 133 mmol/L (137-145); Total Protein 6.8 g/dL (6.3-8.2); Triglycerides 120 mg/dL (<150); White Blood Count 9.3 K/mm3 (4.5-10.0)
[2024-11-02 15:13] LABS: LDL Cholesterol Direct 43 mg/dL
[2024-11-02 16:10] LABS: Vitamin B12 > 1000.0 pg/mL (239-931)
[2024-11-02 17:50] LABS: Vitamin D 25 Hydroxy 35.3 ng/mL
[2024-11-02 18:43] LABS: Hemoglobin A1C 5.8 % (<5.7)
== END 2024-11-02 14:16 | disposition home or self-care (01) ==
LOC: ANHLAB 14:16
PROVIDERS: PCP Family Medicine; Visit Provider Family Medicine
DX: E11.9 Type 2 diabetes mellitus without complications (principal); I10 Essential (primary) hypertension; E55.9 Vitamin D deficiency, unspecified; E53.8 Deficiency of other specified B group vitamins; N40.0 Benign prostatic hyperplasia without lower urinary tract symptoms; I63.9 Cerebral infarction, unspecified; Z79.899 Other long term (current) drug therapy
CPT/HCPCS: 36415; 80053; 80061; 82306; 82607; 83036; 85027

== ENCOUNTER 2024-12-19 16:11 | Outpatient (CLI) | payer OTHER, SELFPAY ==
--- NOTE | ~2024-12-19 | CT_ITS ---
CT Scan of the Chest without Contrast: Clinical Indication: Lung cancer screening, nicotine dependence Technique: Contiguous sections were acquired throughout the chest without intravenous contrast. Dose reduction technique was used on this scan by utilizing automated exposure control and iterative recon struction technique. The dose-length product (DLP) was 411.37 mGy-cm. COMPARISON: 05/05/2023 Findings: There is no evidence of any significant mediastinal, hilar or axillary lymphadenopathy. There are ath erosclerotic calcifications aorta and coronary arteries. There is minimal pericardial effusion. There is no pleural effusion. Stable 5 mm groundglass nodule right lower lobe (axial image 74). Stable 5 mm probable groundglass no dule left upper lobe anteriorly (axial image 59). Images through the upper abdomen reveal no abnormalities. Impression: Lung RADS 2: Benign appearance. 12 month follow-up screening CT advised. Reviewed, dictated and finalized at [facility]. Impression: Lung RADS 2: Benign appearance. 12 month follow-up screening CT advised.
--- OUTSIDE RECORDS SUMMARY | 2024-12-19 16:13 | XMS_ITS | Clinical Summary ---
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 Gender Identity Not on file Sexual Orientation Not on file Plan of Treatment Health Maintenance Due Date Last Done Comments Hepatitis C Screening ages 1 8 to 79 once 1945 YEARLY WELLNESS EXAM 1948 DEPRESSION SCREENING 1957 ADULT TETANUS 1964 LIPID TESTING 1980 Pneumococcal Vaccine: 50 and over (1 of 1 - PCV) 12/09/1995 Zoster Vaccine (Recombinant Vaccine) (1 of 2) 12/09/1995 Fall Risk Assessment 2010 RSV Vaccines (1 - 1-dose 75+ series) 2020 COVID-19 Immunization (1 - 2 ) 01/16/2024 Influenza Vaccine 12/15/2024 HEPATITIS A VACCINES Aged Out No long er eligible based on patient's age to complete this topic HEPATITIS B VACCINES Aged Out No long er eligible based on patient's age to complete this topic HIB VACCINES Aged Out No longer eligi ble based on patient's age to complete this topic HPV VACCINES Aged Out No longer eligi ble based on patient's age to complete this topic IPV VACCINES Aged Out No longer eligi ble based on patient's age to complete this topic MENINGOCOCCAL VACCINE Aged Out No nayana leigh ann eligible based on patient's age to complete this topic Meningococcal B Vaccine Aged Out No l onger eligible based on patient's age to complete this topic ROTAVIRUS VACCINES Aged Out No longer eligible based on patient's age to complete this topic
--- OUTSIDE RECORDS SUMMARY | 2024-12-19 16:13 | XMS_ITS | Continuity of Care Document ---
Author Name [facility] Care Team Providers Care Private Client Advisor Name Role Phone [facility] Unavailable Unavailable Problems Combined list of problems from Department of Defense and Veterans Affairs facilities. It does not include entries that were removed or entered in error. Problem Status Onset Date Problem Type Date of Resolution Comments Source History of cerebrovascular accident Active 5 Condition [facility] Allergic rhinitis Active Condition [facility] Benign essential hypertension (SNOMED CT 3622448) Active Condition [facility] Benign prostatic hyperplasia Active Condition [facility] Carpal tunnel syndrome Active Condition [facility] Chronic low back pain (SNOMED CT [id number]) Active Condition [facility] Chronic obstructive lung disease Active Condition [facility] Edema of lower leg Active Condition [facility] Erectile dysfunction Active Condition [facility] History of bilateral cataract extraction Active Condition [facility] Hyperlipidemia Active Condition [facility] Hypokalemia Active Condition [facility] Iron deficiency anemia Active Condition [facility] Obesity Active Condition [facility] Obstructive sleep apnea Active Condition [facility] Polyneuropathy Active Condition [facility] Sensorineural hearing loss Active Condition [facility] Tinnitus Active Condition [facility] Tobacco use Active Condition [facility] Type 2 diabetes mellitus Active Condition [facility] Vitamin B12 deficiency (non anemic) Active Condition [facility] Anemia Inactive Condition 11/09/2023 [facility] Colonic Polyps Inactive Condition 11/24/2024 [facility] CVA Inactive Condition 11/24/2024 October 06, 2010 Entered By: SAAD DUTTON Comment: ??old one seen on a CT scan [facility] Dyspnea Inactive Condition 11/09/2023 October 06, 2010 Entered By: SAAD DUTTON Comment: Stress test - abnormal; cath was normal on 2009 [facility] Impaired fasting glycaemia (SNOMED CT [id number]) Inactive Condition 11/09/2023 [facility] Rib Fractures Inactive Condition 11/09/2023 September 152010 Entered By: SAAD DUTTON Comment: chronic [facility] Diagnosis: ICD-10-CM Z00.00 Encntr for general adult medical exam w/o abnormal findings Active Diagnosis [facility] Diagnosis: ICD-10-CM G47.33 Obstructive sleep apnea (adult) (pediatric) Active Diagnosis [facility] Diagnosis: ICD-10-CM Z91.89 Oth personal risk factors, not elsewhere classified Active Diagnosis [facility] Medications Combined list of outpatient medications from Department of Defense and Veterans Affairs facilities.Medications provided include 1) outpatient medications from the last 15 months, and 2) patient-reported medications. Medication Details Route Status Patient Instructions Prescription Expires Prescription Number Last Dispense Date Ordering Provider Order Date Order Qty Source ALBUTEROL SO4 90MCG/ACTUA T (CFC-F) INHL,ORAL,8 .5GM INHALE 2 PUFFS BY ORAL INHALATI ON FOUR TIMES A DAY RESPIR ATORY (INHAL ATION) ACTIVE KRANTHI JOHN ROHINI R 2024 [facility] ASCORBIC ACID 500MG TAB TAKE TWO TABLETS BY MOUTH ONCE A DAY ORAL ACTIVE JOHNKRANTHI ROHINI R 2024 [facility] ASPIRIN 81MG TAB,EC TAKE ONE TABLET BY MOUTH ONCE A DAY ORAL ACTIVE ENIO DUTTON 2010 [facility] ASPIRIN 81MG TAB,EC TAKE ONE TABLET BY MOUTH ONCE A DAY ORAL ACTIVE DORAKRANTHI ROHINI R 2024 [facility] BUMETANIDE 1MG TAB TAKE ONE TABLET BY MOUTH ONCE A DAY ORAL ACTIVE DORAKRANTHI ROHINI R 2024 [facility] CYANOCOBALA MIN 1000MCG TAB TAKE ONE TABLET BY MOUTH ONCE A DAY ORAL ACTIVE KRANTHI JOHN LBY R 2024 [facility] DILTIAZEM (EQV-TIAZAC AB4) 360MG 24HR CAP TAKE 1 CAPSULE BY MOUTH EVERY MORNING BEFORE A MEAL ORAL ACTIVE STACEY VERA MD 2014 [facility] DOXAZOSIN MESYLATE 8MG TAB TAKE ONE TABLET BY MOUTH AT BEDTIME ORAL ACTIVE ENIO DUTTON A 2010 [facility] FERROUS SO4 325MG TAB TAKE ONE TABLET BY MOUTH ONCE A DAY ORAL ACTIVE KRANTHI JOHN LBY R 2024 [facility] FLUTICASONE /UMECLIDINI UM/VILANTER OL INHL,ORAL INHALE BY ORAL INHALATI ON ONCE A DAY RESPIR ATORY (INHAL ATION) ACTIVE ME LIN[place]N TTISA 2022 [facility] HYDRALAZINE HCL 10MG TAB TAKE ONE TABLET BY MOUTH THREE TIMES A DAY ORAL ACTIVE STACEY VERA MD 2020 [facility] IBUPROFEN TAB TAKE BY MOUTH FOUR TIMES A DAY NEEDED ORAL ACTIVE DORAKRANTHI LBY R 2023 [facility] METFORMIN HCL 1000MG TAB TAKE ONE TABLET BY MOUTH TWICE A DAY WITH MEALS ORAL ACTIVE STACEY VERA MD 2018 [facility] METOPROLOL SUCCINATE 100MG TAB,SA TAKE 1.5 TABLETS BY MOUTH ONCE A DAY ORAL ACTIVE ENIO DUTTON A 2011 [facility] MULTIVITAMI NS CAP/TAB TAKE ONE TABLET BY MOUTH ONCE A DAY ORAL ACTIVE KRANTHI JOHN LBY R 2024 [facility] POTASSIUM CHLORIDE 20MEQ TAB,SA (DISPERSIBL E) TAKE ONE TABLET BY MOUTH TWICE A DAY ORAL ACTIVE DORAKRANTHI LBY R 2024 [facility] ROSUVASTATI N CA 40MG TAB TAKE ONE-HALF TABLET BY MOUTH EVERY EVENING ORAL ACTIVE STACEY VERA MD 2018 [facility] SEMAGLUTIDE (PA-F) INJ,SOLN INJECT 2 MG UNDER THE SKIN EVERY WEEK SUBCUT ANEOUS ACTIVE KRANTHI JOHN LBY R 2024 [facility] SILDENAFIL TAB TAKE BY MOUTH ONE HOUR PRIOR TO SEXUAL ACTIVITY ORAL ACTIVE KRANTHI JOHN LBY R 2024 [facility] VITAMIN E (OTC) CAP,ORAL TAKE 670 MG BY MOUTH ONCE A DAY ORAL ACTIVE KRANTHI JOHN LBY R 2024 [facility] Allergies, Adverse Reactions, Alerts Combined list of allergies from [facility] and [facility] facilities. It does not include entries that were removed or entered in error. Substance Category Reaction Severity Reaction type Status Date Reported Comments Source BUPROPION Propensity to adverse reactions to drug (finding) Urticaria active 1 [facility] LATEX Propensity to adverse reactions to drug (finding) Eruption active 1 [facility] QUINAPRIL Propensity to adverse reactions to drug (finding) Lip swelling active 8 [facility] WELLBUTRIN XL 150MG TAB Propensity to adverse reactions to drug (finding) Urticaria active 1 [facility] Immunizations Combined list of available immunizations from the [facility] [place] and [facility] facilities. Immunization Series Date Given Administered By Site Reaction Lot Number CVX Code Drug [place] Attorney Status Comments Source COVID-19 (PFIZER), MRNA, LNP-S, PF, YSABEL-SUCROSE, 30 MCG/0.3 ML (AGES 12+ YEARS) 2 2023 309 complet ed HISTORICA L INFORMATI ON - FROM OTHER [facility] RSV, RECOMBINANT, PROTEIN SUBUNIT RSVPREF, ADJUVANT RECONSTITUTED , 0.5 ML, PF 1 2022 303 complet ed HISTORICA L INFORMATI ON - FROM OTHER [facility] COVID-19 (hoohbe), MRNA, LNP-S, PF, YSABEL-SUCROSE, 30 MCG/0.3 ML (AGES 12+ YEARS) 1 2022 309 complet ed HISTORICA L INFORMATI ON - FROM OTHER [facility] INFLUENZA VACCINE, QUADRIVALENT, ADJUVANTED 1 2022 205 complet ed HISTORICA L INFORMATI ON - FROM OTHER [facility]ISTRY, [facility] MRNA, LNP-S, BIVALENT, PF, 30 MCG/0.3 ML DOSE 1 2021 300 complet ed HISTORICA L INFORMATI ON - FROM PATIENT'S WRITTEN RECORD, Lot#: [id number] [facility] COVID-19 ([facility]), MRNA, LNP-S, BIVALENT, PF, 30 MCG/0.3 ML DOSE 2 2021 300 complet ed HISTORICA L INFORMATI ON - FROM OTHER REGISTRY, [facility] N INFLUENZA, HIGH-DOSE, QUADRIVALENT 1 2021 197 complet ed HISTORICA L INFORMATI ON - FROM OTHER REGISTRY, [facility]), MRNA, LNP-S, PF, 30 MCG/0.3 ML DOSE 1 2020 208 complet ed HISTORICA L INFORMATI ON - FROM OTHER REGISTRY, [facility] INFLUENZA VACCINE, QUADRIVALENT, ADJUVANTED 1 2020 205 complet ed HISTORICA L INFORMATI ON - FROM OTHER REGISTRY, [facility]), MRNA, LNP-S, PF, 30 MCG/0.3 ML DOSE 3 2020 208 complet ed HISTORICA L INFORMATI ON - FROM PATIENT'S WRITTEN RECORD, Lot#: [id number] [facility] TD (ADULT), 2 LF TETANUS TOXOID, PRESERVATIVE FREE, ADSORBED 2020 09 complet ed [facility] COVID-19 ([facility]), MRNA, LNP-S, PF, 30 MCG/0.3 ML DOSE 2 2020 208 complet ed PFR; [id number]; 1 [facility] COVID-19 (PFIZER), MRNA, LNP-S, PF, 30 MCG/0.3 ML DOSE 1 2020 208 complet ed PFR; [id number]; 1 [facility] INFLUENZA, HIGH-DOSE, QUADRIVALENT 1 2019 197 complet ed HISTORICA L INFORMATI ON - FROM OTHER REGISTRY, [facility] ZOSTER RECOMBINANT 2 2018 187 complet ed [facility] ZOSTER RECOMBINANT 1 2018 187 complet ed [facility] PNEUMOCOCCAL POLYSACCHARID E PPV23 2017 33 complet ed [facility] PNEUMOCOCCAL POLYSACCHARID E PPV23 2 2017 33 complet ed HISTORICA L INFORMATI ON - FROM OTHER REGISTRY, [facility] INFLUENZA, INJECTABLE, QUADRIVALENT, PRESERVATIVE FREE 2017 150 complet ed [facility] INFLUENZA, SEASONAL, INJECTABLE 1 2017 141 complet ed HISTORICA L INFORMATI ON - FROM OTHER REGISTRY, [facility] INFLUENZA, HIGH DOSE SEASONAL 1 2016 135 complet ed HISTORICA L INFORMATI ON - FROM OTHER REGISTRY, [facility] INFLUENZA, UNSPECIFIED FORMULATION 2015 88 complet ed [place] INFLUENZA, HIGH DOSE SEASONAL 1 2015 135 complet ed HISTORICA L INFORMATI ON - FROM OTHER REGISTRY, [facility] INFLUENZA, UNSPECIFIED FORMULATION 2015 88 complet ed [facility] ZOSTER LIVE 2015 121 complet ed [facility] PNEUMOCOCCAL CONJUGATE PCV 13 2014 133 complet ed [facility] INFLUENZA, SEASONAL, INJECTABLE, PRESERVATIVE FREE 2014 140 complet ed [facility] INFLUENZA, UNSPECIFIED FORMULATION 2013 88 complet ed [facility] INFLUENZA, UNSPECIFIED FORMULATION 2012 88 complet ed [facility] INFLUENZA, UNSPECIFIED FORMULATION 2011 88 complet ed [facility] PNEUMOCOCCAL, UNSPECIFIED FORMULATION 2011 109 complet ed [facility] INFLUENZA, UNSPECIFIED FORMULATION 2010 88 complet ed Jeet Biswas MD [facility] TDAP 2010 115 complet ed [facility] INFLUENZA, UNSPECIFIED FORMULATION 2009 88 complet ed [facility] Vital Signs Combined list of inpatient and outpatient Vital Signs from Department of [place] and [facility], ranging from 12 months to all on record, depending upon the facility. Vital Sign Value Date Comments Source SYSTOLIC BLOOD PRESSURE 159 11/24/2024 10:52:41 [facility] DIASTOLIC BLOOD PRESSURE 70 11/24/2024 10:52:41 [facility] PULSE OXIMETRY 92 % 11/24/2024 10:52:41 [facility] WEIGHT 324.6 11/24/2024 10:52:41 [facility] BMI 43 kg/m2 11/24/2024 10:52:41 [facility] PAIN 2 11/24/2024 10:52:41 [facility] TEMPERATURE 97.8 11/24/2024 10:52:41 [facility] PULSE 80 11/24/2024 10:52:41 [facility] RESPIRATION 20 11/24/2024 10:52:41 [facility] Encounters Combined list of: 1) Encounters from Department of Veterans Affairs facilities going backup to the last 18 months, not all [place] inpatient encounters are included; 2) Encounters from the Department of [place] facilities going backup to 280 months. Location Location Details Encounter Type Encounter Number Reason For Visit Attending Provider ADM Date DC Date Status Disposition Source [facility] Outpatient Encounter [id number] 07/26 [facility] Outpatient Encounter [id number] 07/27 [facility] Outpatient Encounter [id number] KENAN JOHN BY Shahida 08/19 [facility] PRO PHONE CALL 11-20 MIN [id number] Diagnos is: ICD-10- CM Z91.89 Oth persona l risk factors , not elsewhe re classif ied ALIZE AGOSTO 08/19 [facility] Outpatient Encounter [id number] Diagnos is: ICD-10- CM Z00.00 Encntr for general adult medical exam w/o abnorma l finding s KENAN JOHN BY Shahida 11/03 [facility] Outpatient Encounter [id number] 11/03 [facility] Outpatient Encounter [id number] 04/21 [facility] Outpatient Encounter [id number] ALIZE AGOSTO 04/24 [facility] Outpatient Encounter [id number] 04/26 [facility] Outpatient Encounter [id number] 04/27 [facility] Outpatient Encounter [id number] 05/03 [facility] Outpatient Encounter [id number] 10/15 [facility] PH1 ASSMT&MGMT NQHP 5-10 [id number] Diagnos is: ICD-10- CM G47.33 Obstruc tive sleep apnea (adult) (pediat edgar) PHILIP BLAKE 10/30 [facility] Outpatient Encounter [id number] ISAIAH GOFF 11/13 [facility] Outpatient Encounter [id number] 11/13 [facility] Outpatient Encounter [id number] Diagnos is: ICD-10- CM Z00.00 Encntr for general adult medical exam w/o abnorma l KENAN Daniel 11/24 [facility] Outpatient Encounter [id number] 11/24 [facility] Outpatient Encounter [id number] 12/15 [facility] Social History Combined list of available smoking, tobacco, and other social history from Department of Defense and Veterans Affairs facilities. Social History Type Response Date Comment Sour e Tobacco smoking status NHIS VA-TOBACCO USE EVERY DAY CIGARETTES 11/24/2024 [facility] History of tobacco use VA-TOBACCO SCREEN FOLLOW-UP 11/24/2024 [facility] History of tobacco use VA-TOBACCO USE WI 30 MIN OF WAKEUP 11/04/2023 [facility] History of tobacco use VA-TOBACCO USE PIN MACHINE TENDER NO 11/26/2022 [facility] History of tobacco use VA-TOBACCO USER EVERY DAY 11/14/2020 [facility] History of tobacco use VA-TOBACCO USE PIN MACHINE TENDER NO 10/16/2019 [facility] History of tobacco use VA-TOBACCO USE PIN MACHINE TENDER NO 10/14/2017 Miguel MARYURI [facility] History of tobacco use TOBACCO USER OFFERED MEDS 10/14/2017 Miguel MARYURI [facility] History of tobacco use TOBACCO OFFERRED PT MEDS (PROVIDER) 09/17/2015 Miguel WAHL [facility] History of tobacco use CURRENT TOBACCO USER 07/09/2014 Miguel WAHL [facility] History of tobacco use CURRENT TOBACCO USER 10/05/2012 Miguel WAHL [facility] History of tobacco use CURRENT TOBACCO USER 12/09/2011 Miguel WAHL [facility] History of tobacco use CURRENT TOBACCO USER 10/06/2010 Miguel MARYURI [facility] Advance Directives List of completed, amended, or rescinded Advance Directives on record at Department of Veterans Affairs facilities. An actual copy of the Directive is not included. Date Advance Directive Provider Source 08/11/2011 ADVANCE DIRECTIVE SOFI IRENE [facility]
--- OUTSIDE RECORDS SUMMARY | 2024-12-19 16:13 | XMS_ITS | Encounter Summary ---
Author Name [facility] Organization [facility] [place] Address [address] [place] [address] Care Team Providers Care Bobcat Operator Name Role Phone FLORINA JOHN Primary Care Provider Unavailabl e Insurance Providers: All historical and current Section Date Range: From patient's date of to the date document was created. This section includes the names of all active insurance providers for the patient. Insurance Provider Type of Coverage Plan Name Start of Policy Coverage End of Policy Coverage Group Number Member ID Insurance Provider's Telephone Number Policy Chambers's Name Patient's Relationship to Policy Chambers [employer] [facility] (WNR) MEDICARE ADVANTAGE [facility] (WNR) Nov 14, 2010 [id number] [phone] TORIBIO PADILLA PATIENT Selected Encounter This section includes the information on record at [place] for the Encounter. Date/Time Encounter Type Encounter Description Reason Pro vider Source Dec 15, 2024 12:57 PM Outpatient Encounter GENERAL INTERNAL MEDICINE I[facility] Encounter Template Text not used by [place] Social History: Smoking Status (Most current) and Tobacco Use (All prior to encounter date) This section includes the most current, and the historical, smoking and tobacco- related health factors from the [place] facility where the Encounter took place. Current Smoking Status This section includes the most current smoking, or tobacco-related health factor, from the [place] facility where the Encounter took place. Date/Time Current Smoking Status Fatemeh henderson Nov 26, 2022 03:34 PM VA-TOBACCO USE MED NO [facility] Tobacco Use History This section includes a history of the smoking, or tobacco-related health factors, that were collected on or before the date of the Encounter. The data comes from the [place] facility where the Encounter took place. Date/Time Smoking Status/Tobacco Use Comment F acility Nov 26, 2022 03:34 PM VA-TOBACCO USE ADVICE [facility] Nov 26, 2022 03:34 PM VA-TOBACCO USE DEBT COUNSELOR NO [facility] Nov 26, 2022 03:34 PM VA-TOBACCO USE MED NO [facility] Nov 26, 2022 03:34 PM VA-TOBACCO USE WI 30 MIN OF WAKEUP [facility] Nov 26, 2022 03:34 PM VA-TOBACCO USER EVERY DAY [facility] Advance Directives: All historical and current Section Date Range: From patient's date of to the date document was created. This section includes ALL of a patient's completed or amended [place] Advance and Rescinded Directives. The entries below indicate that a directive exists for the patient, but an actual copy is not included with this document. The data comes from all [place] facilities. Date Advance Directives Provider Source Aug 11, 2011 ADVANCE DIRECTIVE SOFI IRENE [facility] Encounter Notes: All associated encounter notes This section contains the clinical notes associated to the Encounter. Date/Time Encounter Note(s) Provider Source Nov 07, 2024 12:57 PM SCANNED NOTE: LOCAL TITLE: NON [place] CARE [facility] STANDARD TITLE: SCANNED NOTE DATE OF NOTE: NOV 07, 2024@12:57 ENTRY DATE: DEC 15, 2024@12:58:42 AUTHOR: MARITA LARKIN EXP COSIGNER: URGENCY: STATUS: COMPLETED Attached to this note is a scanned copy of [place] medical record consisting of the following document(s): Progress Note DOS: 11/07/24 From: [facility] To view the scanned document: 1) You must be logged into [employer] 2) Click on Toolbar 3) Sign on to [facility] /es/ MARITA LARKIN Registered Nurse Signed: 12/15/2024 13:03 MARITA LARKIN [facility]
--- OUTSIDE RECORDS SUMMARY | 2024-12-19 16:13 | XMS_ITS | Clinical Summary ---
Author Organization [facility] Address [address] [place] [id number] Care Team Providers Care Customer Services Manager Name Role Phone Unavailable Primary Care Provider [...]
--- OUTSIDE RECORDS SUMMARY | 2024-12-19 16:13 | XMS_ITS | Encounter Summary ---
Author Name [facility] [place] Organization [facility] [place] Address [address] [place] [address] Care Team Providers Care Mud Engineer Name Role Phone FLORINA JOHN Primary Care [...] Chambers's Name Patient's Relationship to Policy Chambers [employer] [facility] (WNR) MEDICARE ADVANTAGE [facility] (WNR) Nov 14, 2010 [id number] [phone] TORIBIO PADILLA PATIENT Selected Encounter This section includes the information on record at CT for the Encounter. Date/Time Encounter Type Encounter Description Reason Pro vider Source Apr 26, 2024 07:30 AM Outpatient Encounter COMMUNITY CARE CONSULT IHE Encounter Template Text not used by CT Plan of Treatment: Future Appointments (+ 6 months) and Future Tests (+/- 45 days) The Plan of Treatment section includes future care activities for the patient from all [facility]. This section includes future appointments and future orders which are active, pending or scheduled. Future Appointments This section includes appointments that were scheduled to occur 6 months from the date of the Encounter, up to a maximum of 20 appointments. The data comes from all CT treatment facilities. Appointment Date/Time Appointment Type Appointme nt Facility Name Jun 22, 2024 12:15 PM AMBULATORY - NONE [facility] Social History: Smoking Status (Most current) and Tobacco Use (All prior to encounter date) This section includes the most current, and the historical, smoking and tobacco- related health factors from the CT facility where the Encounter took place. Current Smoking Status This section includes the most current smoking, or tobacco-related health factor, from the [place] facility where the Encounter took place. Date/Time Current Smoking Status Comment Facil ity Nov 26, 2022 03:34 PM VA-TOBACCO USE [employer] NO [facility] Tobacco Use History This section includes a history of the smoking, or tobacco-related health factors, that were collected on or before the date of the Encounter. The data comes from the CT facility where the Encounter took place. Date/Time Smoking Status/Tobacco Use Comment F acility Nov 26, 2022 03:34 PM VA-TOBACCO USE ADVICE [facility] Nov 26, 2022 03:34 PM VA-TOBACCO USE E[employer] T[employer] NO [facility] Nov 26, 2022 03:34 PM VA-TOBACCO USE MED NO [facility] Nov 26, 2022 03:34 PM VA-TOBACCO USE WI 30 MIN OF WAKEUP [facility] Nov 26, 2022 03:34 PM VA-TOBACCO USER EVERY DAY [facility] Advance Directives: All historical and current Section Date Range: From patient's date of to the date document was created. This section includes ALL of a patient's completed or amended CT Advance and Rescinded Directives. The entries below indicate that a directive exists for the patient, but an actual copy is not included with this document. The data comes from all [facility]. Date Advance Directives Provider Source Aug 11, 2011 ADVANCE DIRECTIVE SOFI IRENE [facility] Encounter Notes: All associated encounter notes This section contains the clinical notes associated to the Encounter. Date/Time Encounter Note(s) Provider Source Apr 26, 2024 07:30 AM LETTERS: LOCAL TITLE: COMMUNITY CARE-REQUEST FOR SERVICES (RFS) LETTER ST STANDARD TITLE: LETTERS DATE OF NOTE: APR 26, 2024@07:30 ENTRY DATE: APR 26, 2024@07:31:06 AUTHOR: BABAK SILVA EXP COSIGNER: URGENCY: STATUS: COMPLETED [facility] [address] [place] [address] [facility] [address] [place] [address] Dear Provider, Information: Patient Name: BOB PADILLA Date of : Nov [facility] has received the request for continuation of care from you for services that were not originally authorized in the [facility] Administration for this [place]. Upon review, the following determination has been made: Service has been approved. (Authorization #[id number]) Should you have questions, please contact us at [phone] to speak with a patient service aide. As a reminder, if applicable, return medical records within 30 days for routine services. Sincerely, [facility] Sincerely, BABAK SILVA REGISTERED NURSE BABAK SILVA [facility]
== END 2024-12-19 16:12 | disposition home or self-care (01) ==
PROVIDERS: PCP Family Medicine; Visit Provider Family Medicine
DX: Z12.2 Encounter for screening for malignant neoplasm of respiratory organs (principal); Z87.891 Personal history of nicotine dependence
CPT/HCPCS: 71271

== ENCOUNTER 2025-05-16 13:54 | Outpatient (CLI) | payer OTHER, SELFPAY ==
--- OUTSIDE RECORDS SUMMARY | 2025-05-16 13:57 | XMS_ITS | Clinical Summary ---
Author Organization [facility] Address [address] [place] [id number] Care Team Providers Care Communications Station Manager Name Role Phone Unavailable Primary Care Provider Unavailabl e Social History Tobacco Use Types Packs/Day Years Used Date Smoking Tobacco: Never Assessed Sex and Gender Information Value Date Recorded Sex Assigned at Not on file Legal Sex Male 5:27 PM [employer] Gender Identity Not on file Sexual Orientation [...] Vaccines (1 - 1-dose 75+ series) 2020 Influenza Vaccine 12/15/2024 COVID-19 Immunization (1 - 2 season) 2025 HEPATITIS A VACCINES Aged Out No long [...]
--- OUTSIDE RECORDS SUMMARY | 2025-05-16 13:57 | XMS_ITS | Clinical Summary ---
Author Organization [facility] Address [address] [place] [address] Care Team Providers Care Transfer Pumper Name Role Phone Unavailable Primary Care Provider [...] C 12/09/1963 DTaP, Tdap and Td Vaccines (1 - Tdap) 1964 Zoster Vaccines (1 of 2) 12/09/1995 RSV Immunization or 60+ Years (1 - 1-dose 75+ series) 2020 COVID-19 Vaccine (1 - 2024- season) 2025 Influenza Adult (#1) 2025 02/03/2020, 02/15/2018, 03/12/2017, Additional history exists Pneumococcal Vaccine: 50+ Years Completed 03/14/2018, 02/15/2015 Hepatitis A Vaccines Aged Out No long er eligible based on patient's age to complete this topic Meningococcal B Vaccine Aged Out No l onger eligible based on patient's age to complete this topic Meningococcal Vaccine Aged Out No nayana leigh ann eligible based on patient's age to complete this topic RSV Immunizations Under 20 Months Aged Out No longer eligible based on patient's age to complete this topic
[2025-05-16 14:19] LABS: Hematocrit 41.5 % (42.0-52.0); Hemoglobin 13.5 g/dL (14.0-18.0); Immature Granulocyte Percent A 0.4 % (0-0.5); Lymphocytes Absolute Auto 1.67 K/mm3 (0.9-3.2); Mean Corpuscular HGB Conc 32.5 g/dl (32-36); Mean Corpuscular Hemoglobin 30.4 pg (26-34); Mean Corpuscular Volume 93.5 fl (80-100); Nucleated Red Blood Cells Absolute Auto 0.000 K/mm3 (0.0-0.012); Nucleated Red Blood Cells Perc 0.0 % (0.0-0.2); Platelet Count Result 151 k/mm3 (150-375); Red Blood Count 4.44 M/mm3 (4.6-6.20); White Blood Count 9.3 K/mm3 (4.5-10.0)
[2025-05-16 14:37] LABS: Hemoglobin A1C 6.2 % (<5.7)
[2025-05-16 16:44] LABS: Alanine Aminotransferase 18 U/L (6-50); Albumin Level 3.9 g/dL (3.5-5.1); Alkaline Phosphatase 80 U/L (38-126); Anion Gap 5 mmol/L (4-12); Aspartate Amino Transferase 23 U/L (17-59); Bilirubin,Total 0.4 mg/dL (0.2-1.3); Blood Urea Nitrogen 13 mg/dL (9-20); Calcium 8.7 mg/dL (8.4-10.2); Carbon Dioxide 33 mmol/L (22-30); Chloride 96 mmol/L (98-107); Estimated Glomerular Filt Rate > 60; Glucose 110 mg/dL (65-110); Potassium 3.8 mmol/L (3.4-5.0); Sodium 134 mmol/L (137-145); Total Protein 6.8 g/dL (6.3-8.2)
[2025-05-16 17:51] LABS: Prostate Specific Antigen 2.0 ng/mL (< OR = 4.0)
[2025-05-16 18:10] LABS: Vitamin B12 716.0 pg/mL (239-931)
== END 2025-05-16 13:55 | disposition home or self-care (01) ==
PROVIDERS: PCP Family Medicine; Visit Provider Family Medicine
DX: E78.2 Mixed hyperlipidemia (principal); Z12.5 Encounter for screening for malignant neoplasm of prostate; Z79.899 Other long term (current) drug therapy; I10 Essential (primary) hypertension; E11.9 Type 2 diabetes mellitus without complications; E53.8 Deficiency of other specified B group vitamins; E55.9 Vitamin D deficiency, unspecified; N40.0 Benign prostatic hyperplasia without lower urinary tract symptoms; I63.9 Cerebral infarction, unspecified; G47.33 Obstructive sleep apnea (adult) (pediatric); Z00.00 Encounter for general adult medical examination without abnormal findings
CPT/HCPCS: 36415; 80053; 82306; 82607; 83036; 84153; 85025; G0103